=== PATIENT | female | born 1990 | race Caucasian/White ===

== ENCOUNTER 2018-11-29 16:44 | Outpatient (REF) | payer MEDICAID, SELFPAY ==
[2018-12-01 12:32] LABS: Chlamydia Result Negative; GC Result Negative; Specimen Description CERVIX
== END 2018-11-29 17:04 ==
LOC: LBN 16:44
PROVIDERS: PCP Family Medicine; Visit Provider Nurse Practitioner Women's Health
DX: Z11.3 Encounter for screening for infections with a predominantly sexual mode of transmission (principal)
CPT/HCPCS: 87491; 87591

== ENCOUNTER 2020-05-13 10:36 | Outpatient (CLI) | payer MEDICAID, SELFPAY ==
[2020-05-15 23:07] LABS: Patient Race White; SARS-CoV-2 RNA Undetected (Undetected); SARS-CoV-2 Specimen Source Nasal
== END 2020-05-13 10:56 ==
PROVIDERS: PCP Family Medicine; Visit Provider Family Medicine
DX: Z11.59 Encounter for screening for other viral diseases (principal); Z20.828 Contact with and (suspected) exposure to other viral communicable diseases
CPT/HCPCS: U0003

== ENCOUNTER 2020-08-05 11:22 | Outpatient (REF) | payer MEDICAID, SELFPAY ==
--- NOTE | 2020-08-05 10:45 | PAPFT_PTH ---
PATIENT: Margarette Miller LOC: [facility] U#:[id number] AGE/SX: 29/F ROOM: RE08/05/[address]: LESLEY Garcia : 1990 BED: DIS: 08/05/2020 SPEC #: [id number] RECD: 08/05/20 13:07 STATUS: KARINE REQ #: [id number] ROGELIO: 08/05/20 10:[address]: Laure Romeo [facility] Cytology RECD BY: Jojo Stover ENTERED: 08/05/20 13:07 SP TYPE: PAPFT OTHR DR: Melchor Cooper MD Tissues: 1 - CX/ENDOCX FOR PAP SMEARS Procedures: PAP THIN PREP/[facility]VM Screening Comments: [id number]
[2020-08-08 07:37] LABS: Chlamydia Result Negative (Negative); GC Result Negative (Negative)
== END 2020-08-05 11:23 | disposition home or self-care (01) ==
LOC: LBN 11:22
PROVIDERS: PCP Family Medicine; Visit Provider Nurse Practitioner Family
DX: Z11.3 Encounter for screening for infections with a predominantly sexual mode of transmission (principal); Z12.4 Encounter for screening for malignant neoplasm of cervix
CPT/HCPCS: 87491; 87591; 88142

== ENCOUNTER 2020-08-18 01:29 | Outpatient (CLI) | payer MEDICAID, SELFPAY ==
--- NOTE | 2020-08-18 06:45 | DI.US_ITS ---
EXAM: US PELVIS TRANSVAGINAL CLINICAL HISTORY: pelvic pain,R10.2 TECHNIQUE: Transabdominal and transvaginal imaging was performed using standard protocol. COMPARISON: US PELVIS TRANSVAG from 02/04/2015 FINDINGS: KIDNEYS: Kidneys are symmetric in size. No evidence of renal calculi. No evidence of hydronephrosis. No renal mass or cyst identified. UTERUS: Anteverted. 9.3 x 4.6 x 5.9 cm. Endometrium: 4 millimeters. IUD which appears appropriately positioned. Myometrium: Unremarkable. Cervix: Unremarkable. OVARIES: Right: Cyst or mass: None. Left: Cyst or mass: None. DOPPLER: Color: Symmetric and uniform flow to both ovaries. No hyperemia. Small follicles bilaterally. No cy st or mass. Duplex: Normal ovarian arterial waveforms visualized. CUL-DE-SAC: Free fluid: Small amount. Quantity appears physiologic. IMPRESSION: 1. Normal-appearing uterus with endometrial stripe within normal limits. IUD is seen within the endo metrial canal. 2. Unremarkable bilateral ovaries. Small amount free fluid, physiologic. DATA REPOSITORY:
== END 2020-08-18 01:49 ==
PROVIDERS: PCP Family Medicine; Visit Provider Nurse Practitioner Family
DX: R10.2 Pelvic and perineal pain (principal); Z97.5 Presence of (intrauterine) contraceptive device
CPT/HCPCS: 76830; 76856

== ENCOUNTER 2020-12-18 13:40 | Outpatient (REF) | payer MEDICAID, SELFPAY ==
[2020-12-19 15:35] LABS: Chlamydia Result Negative (Negative); GC Result Negative (Negative)
== END 2020-12-18 13:41 | disposition home or self-care (01) ==
LOC: LBN 13:40
PROVIDERS: PCP Family Medicine; Visit Provider Nurse Practitioner Family
DX: Z11.3 Encounter for screening for infections with a predominantly sexual mode of transmission (principal)
CPT/HCPCS: 87491; 87591

== ENCOUNTER 2021-06-30 20:36 | Outpatient (REF) | payer MEDICAID, SELFPAY ==
[2021-07-02 16:38] LABS: Chlamydia Result Negative (Negative); GC Result Negative (Negative)
== END 2021-06-30 20:37 | disposition home or self-care (01) ==
LOC: LBN 20:36
PROVIDERS: PCP Family Medicine; Visit Provider Nurse Practitioner Women's Health
DX: Z11.3 Encounter for screening for infections with a predominantly sexual mode of transmission (principal)
CPT/HCPCS: 87491; 87591

== ENCOUNTER 2021-08-24 14:55 | Outpatient (REF) | payer MEDICAID, SELFPAY ==
[2021-08-25 14:11] LABS: Chlamydia Result Negative (Negative); GC Result Negative (Negative)
== END 2021-08-24 14:56 | disposition home or self-care (01) ==
LOC: LBN 14:55
PROVIDERS: PCP Family Medicine; Visit Provider Nurse Practitioner Family
DX: Z11.3 Encounter for screening for infections with a predominantly sexual mode of transmission (principal)
CPT/HCPCS: 87491; 87591

== ENCOUNTER 2022-01-10 18:24 | Emergency (ER) | payer MEDICAID, SELFPAY ==
[2022-01-10 18:29] VITALS: BP 123/79; PULSE 63; RESP 18; TEMP 36.9; O2SAT 100
--- NOTE | 2022-01-10 18:57 | DI.RAD_ITS ---
Exam(s) XR FOOT LT COMPLETE EXAM: XR FOOT LT COMPLETE CLINICAL HISTORY: pain over 3-4th MTs, inversion injury TECHNIQUE: COMPARISON: No exams were available for comparison FINDINGS: Four views were obtained. There is no evidence of acute fracture or dislocation. IMPRESSION: RADIATION DOSE DELIVERED: Total DLP
--- NOTE | 2022-01-10 19:34 | ED.GENADUL_ITS ---
Discharge Plan Disposition Patient Disposition: HOME Condition: Stable Discharge Details Clinical Impression: Sprain of foot, left Primary Care Provider: Unknown,Unknown ED Provider: Sukumar Mae Home Meds and New Rx's Prescriptions: Continued acetaminophen [Tylenol] 325 MG tablet 650 mg PO Q4H PRN PRN0RF ibuprofen 600 MG tablet 600 mg PO Q6H PRN PRN0RF albuterol sulfate [ProAir HFA] 8.5 GM HFA aerosol inhaler 8.5 gm Inhalation Q4H PRNQty: 1 0RF Rx Instructions: 2 puffs up to every 4 hrs prn wheeze No Action up4 Probiotics Women's 5 billion cell- 250 mg capsule 1 cap PO DAILY Qty: 90 4RF Discharge Instructions Instructions: Foot Sprain (ED) Additional Instructions: Please use ankle boot and crutches over the next 1 week. Please take ibuprofen over the counter. Take 600mg by mouth every 6 hours as needed for pain. If pain persist, please follow-up with orthopedics. Return to the emergency department for any worsening or new concerning symptoms. Referrals: [facility] [Provider Group] Medical Decision Making 1939 -- 31-year-old female here with inversion injury to her right foot, tender over third and fourth metatarsals in her midfoot. Ankle is nontender with no swelling. Concern for extensor ligament tear versus Lisfranc joint injury. Plan to obtain plain film x-rays. We will also obtain weightbearing view. -- X-ray was interpreted by radiology: No acute bony pathology. Plan to place patient in short walking boot and provide crutches. She will be instructed to follow-up with orthopedics should pain persist despite immobilization. HPI General Mode of arrival: ambulatory . Date/Time Provider Initiated Documentation: 01/10/22 18:57 . Limitations to Documentation: no limitations . Information obtained by: patient . HPI Narrative: 31-year-old female here with left foot pain. Patient notes she inverted her foot while she was carrying a bed. Pain is moderate to severe and worse with movement of her foot. No associated numbness or tingling. This occurred just prior to arrival. She did take ibuprofen and Tylenol. Related Data Home Medications Medication Instructions Recorded Confirmed acetaminophen 325 mg tablet 650 mg PO Q4H PRN PRN 11/22/15 01/10/22 (Tylenol) ibuprofen 600 mg tablet 600 mg PO Q6H PRN PRN 11/22/15 01/10/22 albuterol sulfate 90 mcg/actuation 8.5 gm inhalation Q4H PRN ##1 09/11/17 01/10/22 aerosol inhaler (ProAir HFA) L.acid,gasseri,plant,rham-B.animalis-cran 1 cap PO DAILY #90 caps 06/08/21 12/09/21 5 billion cell-250mg capsule (up4 Probiotics Women's) Previous Rx's Medication Instructions Recorded acetaminophen 325 mg tablet 650 mg PO Q4H PRN PRN 11/22/15 (Tylenol) ibuprofen 600 mg tablet 600 mg PO Q6H PRN PRN 11/22/15 albuterol sulfate 90 mcg/actuation 8.5 gm inhalation Q4H PRN ##1 09/11/17 aerosol inhaler (ProAir HFA) L.acid,gasseri,plant,rham-B.animalis-cran 1 cap PO DAILY #90 caps 06/08/21 5 billion cell-250mg capsule (up4 Probiotics Women's) Allergies Allergy/AdvReac Type Severity Reaction Status Date / Time sulfamethoxazole AdvReac Intermediate Nausea Verified 01/10/22 18:32 [From Bactrim] trimethoprim [From Bactrim] AdvReac Intermediate Nausea Verified 01/10/22 18:32 General Stated Complaint: Orthopedic JANIS: 4 Review of Systems Musculoskeletal Musculoskeletal: Reports as per HPI Neurologic Neurologic: Reports as per HPI PFSH All Active Problems (Updated 01/10/22 @ 20:18 by Sukumar Mae MD) Sprain of foot, left (Acute) Asthma (Chronic) Family History Mother Epilepsy Father No problems noted. Brother No problems noted. Brother No problems noted. Grandfather No problems noted. Grandfather No problems noted. Grandmother No problems noted. Grandmother Diabetes Son Asthma Daughter No problems noted. Social History Smoking/Tobacco Use Status: Never Smoking risk assessment performed?: Yes Alcohol Intake: current Alcohol Intake frequency: a few times a month Drug use: Daily Substance use type: marijuana Household members: children Do you feel safe in your relationship?: Yes Female Reproductive History Menstrual Age of Menarche: 13 History History 2 Para 2 Hx # Term Pregnancies Multiple births Hx # Pregnancies Ectopic pregnancies AB induced Hx Number of Living Children 2 AB spontaneous Past Pregnancies Del. Date GA/Weeks # Preg Succ Route Wgt Sex Labor Lgth Anesth esia Location Prov Complic 06/15/11 40 No vaginal 3827.186 g Male [facility] 11/21/15 40 No vaginal 3798.836 g Female [facility] Exam Extrem Left lower extremity: lower leg Details: normal to inspection, ankle Details: normal to inspection and foot Details: tenderness Location: of the dorsal foot Location: medially (over 4th MT) and over the Lisfranc joint, edema Location: of the dorsal foot (mild) Location: medially, vascular exam Details: posterior tibial pulse present and motor-sensory exam Details: light-touch normal; no unusual warmth Course Vital Signs Vital signs: Vital Signs Temperature 36.9 C 01/10/22 18:29 Pulse 63 01/10/22 18:29 Respiratory Rate 18 01/10/22 18:29 Blood Pressure 123/79 01/10/22 18:29 Pulse Oximetry 100 01/10/22 18:29 Temperature 36.9 C 01/10/22 18:29 Temperature Source Temporal Artery Scan 01/10/22 18:29 Pulse 63 01/10/22 18:29 Respiratory Rate 18 01/10/22 18:29 Respiratory Effort Non-Labored 01/10/22 18:36 Blood Pressure 123/79 01/10/22 18:29 Blood Pressure Position Sitting 01/10/22 18:29 Pulse Oximetry 100 01/10/22 18:29 Oxygen Delivery Method Room Air 01/10/22 18:29 Oxygen Flow Rate 0 01/10/22 18:29 Lab/Test Results Lab/Test Results: POC- Test(urine) Negative PAWSS Have you Been Recently Intoxicated or Drunk Within the Last 30 days?: No Have you Ever Experienced Previous Episodes of Alcohol Withdrawal?: No Have you ever Experienced Withdrawal Seizures?: No Have you ever Experienced Delirium Tremens(DT)s?: No Have you ever undergone Alcohol Rehabilitation Treatment (i.e, inpt ot outpatient treatment programs)?: No Have you ever Experienced Blackouts?: No Have you ever Combined Alcohol with other Downers within the last 90 days?: No Have you ever Combined Alcohol with any other Substance of Abuse during the last 90 days?: No Positive Blood Alcohol level on Presentation? [PCS.BAL]: No Evidence of Increased Autonomic Activity (i.e. HR>120, tremor, sweating, agitation, nausea)?: No Result: 0
--- NOTE | 2022-01-10 19:51 | DI.VRAD_ITS ---
PROCEDURE INFORMATION: Exam: XR Left Foot Exam date and time: 01/10/2022 19:37 Age: 31 years old Clinical indication: Foot; Left; Patient HX: Pain over 3-4 mts, inversion injury; Incl weight-bearing ap per provider TECHNIQUE: Imaging protocol: Radiologic exam of the Left foot. Views: 3 or more views. COMPARISON: No relevant prior studies available. FINDINGS: Bones/joints: The No acute fracture or subluxation. Soft tissues: Normal. IMPRESSION: No acute bony pathology. Dictated and Authenticated by: Mayelin Domínguez MD. Ordering:CLARENCE Patino MD
== END 2022-01-10 20:35 | disposition home or self-care (01) ==
PROVIDERS: Emergency Provider Student in an Organized Health Care Education/Training Program
DX: S93.692A Other sprain of left foot, initial encounter (principal); X50.1XXA Overexertion from prolonged static or awkward postures, initial encounter
CPT/HCPCS: 29515; 81025; 99283; 73630

== ENCOUNTER 2022-02-12 01:43 | Outpatient (CLI) | payer MEDICAID, SELFPAY ==
--- OUTSIDE RECORDS SUMMARY | 2022-02-12 01:45 | XMS_ITS | Encounter Summary ---
:1990 Author Organization [facility] Address [address] [place] [address] Care Team Providers Name Role Phone Unknown, Provider Primary Care Provider Encounter Details Date Type Department Care Team Description 12/18/2020 Lab Requisition [facility] Outr Resulting Lab, Pathology & Laboratory Provider [facility] [address] [place] [address] Social History Tobacco Use Types Packs/Day Years Used Date Never Assessed Sex Assigned at Date Recorded Not on file documented as of this encounter Plan of Treatment Not on filedocumented as of this encounter Procedures Procedure Name Priority Date/Time Associated Comments Diagnosis CHLAMYDIA/N. Routine 12/18/2020 12:00 Results for this GONORRHOEAE AMPLIFIED EDT proced ure are in RNA the results section. documented in this encounter Results CHLAMYDIA/N. GONORRHOEAE AMPLIFIED RNA (12/18/2020 12:00 EDT) Pathologist Sig nature Gonococcus Result Negative Negative [facility] Chlamydia Result Negative Negative [facility] Specimen Swab - Entire endocervix (body structure ) Performing Organization Address City/State/ZIP Code Phon e Number [facility] [address] [place] [address] SERVICES documented in this encounter Visit Diagnoses Not on filedocumented in this encounter Care Teams Facilities Technician Relationship Specialty Start Date End Date Unknown, Provider, PCP - General 01/14/14 documented as of this encounter
--- OUTSIDE RECORDS SUMMARY | 2022-02-12 01:45 | XMS_ITS | Encounter Summary ---
:1990 Author Organization [facility] Address [address] [place] [address] Care Team Providers Name Role Phone Unknown, Provider Primary Care Provider Encounter Details Date Type Department Care Team Description 08/24/2021 Lab Requisition [facility] Outr Resulting Lab, Pathology & Laboratory Provider [facility] [address] [place] [address] Social History Tobacco Use Types Packs/Day Years Used Date Never Assessed Sex Assigned at Date Recorded Not on file documented as of this encounter Plan of Treatment Not on filedocumented as of this encounter Procedures Procedure Name Priority Date/Time Associated Comments Diagnosis CHLAMYDIA/N. Routine 08/24/2021 13:00 Results for this GONORRHOEAE AMPLIFIED EDT proced ure are in RNA the results section. documented in this encounter Results CHLAMYDIA/N. GONORRHOEAE AMPLIFIED RNA (08/24/2021 13:00 EDT) Pathologist Sig nature Gonococcus Result Negative Negative [facility] Chlamydia Result Negative Negative [facility] Specimen Swab - Entire endocervix (body structure ) Performing Organization Address City/State/ZIP Code Phon e Number [facility] [address] [place] [address] SERVICES documented in this encounter Visit Diagnoses Not on filedocumented in this encounter Care Teams Computer Systems Information Director Relationship Specialty Start Date End Date Unknown, Provider, PCP - General 01/14/14 documented as of this encounter
--- OUTSIDE RECORDS SUMMARY | 2022-02-12 01:45 | XMS_ITS | Encounter Summary ---
:[address] [facility] Address [address] [place] [address] Care Team Providers Name Role Phone Unknown, Provider Primary Care Provider Encounter Details Date Type Department Care Team Description 08/05/2020 Lab Requisition [facility] Outr Resulting Lab, Pathology & Laboratory Provider [facility] [address] [place] [address] Social History Tobacco Use Types Packs/Day Years Used Date Never Assessed Sex Assigned at Date Recorded Not on file documented as of this encounter Plan of Treatment Not on filedocumented as of this encounter Procedures Procedure Name Priority Date/Time Associated Comments Diagnosis CHLAMYDIA/N. Routine 08/05/2020 10:45 Results for this GONORRHOEAE AMPLIFIED EST proced ure are in RNA the results section. documented in this encounter Results CHLAMYDIA/N. GONORRHOEAE AMPLIFIED RNA (08/05/2020 10:45 EST) Pathologist Sig nature Gonococcus Result Negative Negative [facility] Chlamydia Result Negative Negative [facility] Specimen Swab - Entire endocervix (body structure ) Performing Organization Address City/State/ZIP Code Phon e Number [facility] [address] [place] [address] SERVICES documented in this encounter Visit Diagnoses Not on filedocumented in this encounter Care Teams Customer Experience Retail Clerk Relationship Specialty Start Date End Date Unknown, Provider, PCP - General 01/14/14 documented as of this encounter
--- OUTSIDE RECORDS SUMMARY | 2022-02-12 01:45 | XMS_ITS | Encounter Summary ---
:1990 Author Organization [facility] Address [address] [place] [address] Care Team Providers Name Role Phone Unknown, Provider Primary Care Provider Encounter Details Date Type Department Care Team Description 07/01/2021 Lab Requisition [facility] Outr Resulting Lab, Pathology & Laboratory Provider [facility] [address] [place] [address] Social History Tobacco Use Types Packs/Day Years Used Date Never Assessed Sex Assigned at Date Recorded Not on file documented as of this encounter Plan of Treatment Not on filedocumented as of this encounter Procedures Procedure Name Priority Date/Time Associated Comments Diagnosis CHLAMYDIA/N. Routine 06/30/2021 14:00 Results for this GONORRHOEAE AMPLIFIED EST proced ure are in RNA the results section. documented in this encounter Results CHLAMYDIA/N. GONORRHOEAE AMPLIFIED RNA (06/30/2021 14:00 EST) Pathologist Sig nature Gonococcus Result Negative Negative [facility] Chlamydia Result Negative Negative [facility] Specimen Swab - Entire wall of cervix (body struc ture) Performing Organization Address City/State/ZIP Code Phon e Number [facility] [address] [place] [address] SERVICES documented in this encounter Visit Diagnoses Not on filedocumented in this encounter Care Teams Ceo & Board Director Relationship Specialty Start Date End Date Unknown, Provider, PCP - General 01/14/14 documented as of this encounter
--- OUTSIDE RECORDS SUMMARY | 2022-02-12 01:46 | XMS_ITS | Encounter Summary ---
:1990 Author Organization [facility] Address [address] [place] [address] Care Team Providers Name Role Phone Unknown, Provider Primary Care Provider Encounter Details Date Type Department Care Team Description 01/11/2014 Results Only [facility] Vasquez Romeo, [facility] Laboratory Services - [address] [facility] [address] [address] [place] [address] [phone] Social History Tobacco Use Types Packs/Day Years Used Date Never Assessed Sex Assigned at Date Recorded Not on file documented as of this encounter Plan of Treatment Not on filedocumented as of this encounter Procedures Procedure Name Priority Date/Time Associated Diagnosis Comme nts PAP TEST- RESULT Routine 01/11/2014 0:00 EDT Resu lts for this ONLY procedure are i n the results section. documented in this encounter Results PAP TEST- RESULT ONLY (01/11/2014 0:00 EDT) Pathology Report: CYTOPATHOLOGY REPORT [facility] Reports generated via electronic interface contain mingo ginal data; however they are lacking the format of the original re port. Caution should be taken when reading/interpreting unfo rmatted reports. Name: ? GUERO MILLER ? Accession #: ? [id number] : ? 1990 (Age: 23) ??F ?Collect Date: ? 0806/2013 Location: ? [facility] ? Receive Date : ? 01/14/2014 Provider: ?HAYDER ROMEO BALANCE WEIGHER Copy to: ?PARAS BILLINGSLEY MD ? Specimen/Source: ? Pap Test, Cervix/Endocervix, ThinPrep Imaging System with manual evaluation Last Menstrual Period: ? 12/11/13 Hormonal/Contraceptive Status: ? Intrauterine device: Mirena Other: ? Additional clinical information: 1st Pap ? SPECIMEN ADEQUACY ? Satisfactory for Evaluation - transformation zone component present GENERAL CATEGORIZATION ? Negative for Intraepithelial Lesion or Malignan cy ? Document reviewed and electronically signed by: ? MARGARET Bean(ASCP) ? Report Date: ??01/16/2014 11:17 End of Report Specimen Performing Organization Address City/State/ZIP Code Phon e Number [facility] [address] [place] [address] SERVICES [facility] [address] [place] [address] documented in this encounter Visit Diagnoses Not on filedocumented in this encounter Care Teams Review Specialist Relationship Specialty Start Date End Date Unknown, Provider, PCP - General 01/14/14 documented as of this encounter
--- OUTSIDE RECORDS SUMMARY | 2022-02-12 01:46 | XMS_ITS | Encounter Summary ---
:1990 Author Organization [facility] Address [address] [place] [address] Care Team Providers Name Role Phone Unknown, Provider Primary Care Provider Encounter Details Date Type Department Care Team Description 06/17/2016 Results Only [facility]- Laure Sanford, [facility] [phone] [place] [address] [place] [address] (Wo rk) Social History Tobacco Use Types Packs/Day Years Used Date Never Assessed Sex Assigned at Date Recorded Not on file documented as of this encounter Plan of Treatment Not on filedocumented as of this encounter Procedures Procedure Name Priority Date/Time Associated Diagnosis Comme nts PAP TEST- RESULT Routine 06/17/2016 0:00 EST Resu lts for this ONLY procedure are i n the results section. documented in this encounter Results PAP TEST- RESULT ONLY (06/17/2016 0:00 EST) Pathology Report: CYTOPATHOLOGY REPORT [facility] Reports generated via electronic interface contain mingo ginal data; SERVICES however they are lacking the format of the original re port. Caution should be taken when reading/interpreting unfo rmatted reports. Name: ? GUERO MILLER ? Accession #: ? [id number] : ? 1990 (Age: 4 3) ??F ?Collect Date: ? 2016 Location: ? [facility] ? Receive Date : ? 06/18/2016 Provider: ?LAURE POSADAS BINGO CLERK Copy to: ?NILES COLÓN MD ? Specimen/Source: ? Pap Test, Cervix, ThinPrep Imaging System with manual evaluation Last Menstrual Period: ? 05/19/2016 ? SPECIMEN ADEQUACY ? Satisfactory for Evaluation - transformation zone component present GENERAL CATEGORIZATION ? Negative for Intraepithelial Lesion or Malignan cy ? Document reviewed and electronically signed by: ? MARGARET Duarte(ASCP) ? Report Date: ??06/22/2016 12:29 End of Report Specimen Performing Organization Address City/State/ZIP Code Phon e Number [facility] [address] [place] [address] SERVICES documented in this encounter Visit Diagnoses Not on filedocumented in this encounter Care Teams Senior Scientist Relationship Specialty Start Date End Date Unknown, Provider, PCP - General 01/14/14 documented as of this encounter
[2022-02-12 12:26] LABS: Abs Immature Grans 0.01 10^3/uL (0.0-0.06); Absolute Basophil Count 0.04 10^3/uL (0.0-0.2); Absolute Eosinophil Count 0.15 10^3/uL (0.0-0.7); Absolute Lymphocyte Count 1.38 10^3/uL (1.2-3.4); Absolute Monocyte Count 0.27 10^3/uL (0.1-0.8); Absolute Neutrophil Count 3.02 10^3/uL (1.2-6.7); Basophils % 0.8; Eosinophils % 3.1; HCT 36.1 % (36.0-46.0); HGB 12.4 g/dL (11.2-15.7); Immature Grans % 0.2; Lymphocytes % 28.3; MCHC 34.3 % (32.0-36.0); MCV 93 fL (80-95); MPV 10.9 fL (8.0-11.0); Monocytes % 5.5; Neutrophils % 62.1; Platelet Count 210 10^3/uL (130-400); RBC 3.87 10^6/uL (3.93-5.22); RDW 12.4 % (11.7-14.6); RDW-SD 42.6 fL; WBC 4.87 10^3/uL (4.4-10.8)
[2022-02-12 12:52] LABS: BUN 14 mg/dL (7-18); CREATININE 0.8 mg/dL (0.55-1.02); Calcium 9.2 mg/dL (8.5-10.1); Calculated LDL 80 mg/dL (<100); Chloride 104 mmol/L (98-107); Cholesterol 168 mg/dL (<200); Estimated GFR 102.22 (mL/min/1.73m2); Glucose 73 mg/dL (74-106); HDL Cholesterol 78 mg/dL (40-60); Sodium 142 mmol/L (136-145); Triglyceride 54 mg/dL (<150)
== END 2022-02-12 01:44 | disposition home or self-care (01) ==
LOC: LOS 01:43
PROVIDERS: PCP Nurse Practitioner Family; Visit Provider Nurse Practitioner Family
DX: R42 Dizziness and giddiness (principal); Z13.220 Encounter for screening for lipoid disorders; Z13.29 Encounter for screening for other suspected endocrine disorder; Z00.00 Encounter for general adult medical examination without abnormal findings
CPT/HCPCS: 36415; 80048; 80061; 84443; 85025

== ENCOUNTER 2022-07-30 09:46 | Outpatient (CLI) | payer MEDICAID, SELFPAY ==
[2022-07-30 09:35] LABS: HCG Quant, Pregnancy 7 mIU/mL (1-3)
== END 2022-07-30 09:47 | disposition home or self-care (01) ==
LOC: LBO 10:09
PROVIDERS: PCP Nurse Practitioner Family; Visit Provider Advanced Practice Midwife
DX: O20.9 Hemorrhage in early pregnancy, unspecified (principal)
CPT/HCPCS: 36415; 86850; 86900; 86901; 84702

== ENCOUNTER 2022-08-02 02:55 | Outpatient (CLI) | payer MEDICAID, SELFPAY ==
[2022-08-02 11:24] LABS: HCG Quant, Pregnancy 2 mIU/mL (1-3)
== END 2022-08-02 02:56 | disposition home or self-care (01) ==
LOC: LBO 02:55
PROVIDERS: PCP Nurse Practitioner Family; Visit Provider Advanced Practice Midwife
DX: O03.9 Complete or unspecified spontaneous abortion without complication (principal)
CPT/HCPCS: 36415; 84702

== ENCOUNTER 2022-08-25 13:24 | Outpatient (CLI) | payer MEDICAID, SELFPAY ==
[2022-08-25 13:39] LABS: HCG Quant, Pregnancy 68 mIU/mL (1-3)
== END 2022-08-25 13:25 | disposition home or self-care (01) ==
LOC: LBO 13:24
PROVIDERS: Advanced Practice Midwife; PCP Nurse Practitioner Family; Visit Provider Advanced Practice Midwife
DX: O03.9 Complete or unspecified spontaneous abortion without complication (principal); Z87.59 Personal history of other complications of pregnancy, childbirth and the puerperium
CPT/HCPCS: 36415; 84702

== ENCOUNTER 2022-08-27 02:15 | Outpatient (CLI) | payer MEDICAID, SELFPAY ==
[2022-08-27 16:08] LABS: HCG Quant, Pregnancy 237 mIU/mL (1-3)
== END 2022-08-27 02:16 | disposition home or self-care (01) ==
LOC: LBO 02:15
PROVIDERS: PCP Nurse Practitioner Family; Visit Provider Advanced Practice Midwife
DX: O03.9 Complete or unspecified spontaneous abortion without complication (principal); Z87.59 Personal history of other complications of pregnancy, childbirth and the puerperium
CPT/HCPCS: 36415; 84702

== ENCOUNTER 2022-10-18 03:00 | Outpatient (CLI) | payer MEDICAID, SELFPAY ==
[2022-10-18 12:26] LABS: Panorama Kit Sent via Fed Ex
[2022-10-18 12:34] LABS: Abs Immature Grans 0.01 10^3/uL (0.0-0.06); Absolute Basophil Count 0.03 10^3/uL (0.0-0.2); Absolute Eosinophil Count 0.07 10^3/uL (0.0-0.7); Absolute Lymphocyte Count 1.38 10^3/uL (1.2-3.4); Absolute Monocyte Count 0.35 10^3/uL (0.1-0.8); Absolute Neutrophil Count 5.06 10^3/uL (1.2-6.7); Basophils % 0.4; HCT 33.2 % (36.0-46.0); HGB 11.6 g/dL (11.2-15.7); Immature Grans % 0.1; MCH 31.8 pg (27.0-33.0); MCHC 34.9 % (32.0-36.0); MCV 91 fL (80-95); MPV 9.6 fL (8.0-11.0); Monocytes % 5.1; Neutrophils % 73.4; Platelet Count 200 10^3/uL (130-400); RBC 3.65 10^6/uL (3.93-5.22); RDW 12.5 % (11.7-14.6); RDW-SD 41.6 fL
[2022-10-19 09:44] LABS: Hepatitis B Surface Ag Negative (Negative)
[2022-10-19 10:07] LABS: Hepatitis C Ab w Rflx HCV PCR Negative (Negative)
[2022-10-19 10:23] LABS: HIV-1/2 Ag & Ab Screen Negative (Negative)
[2022-10-19 10:35] LABS: Varicella IgG Antibody Positive (See Note)
[2022-10-19 10:43] LABS: Rubella IgG Ab (UVM) Positive (See Note)
[2022-10-20 22:19] LABS: Syphilis IgG w/Reflex Nonreactive (Nonreactive)
== END 2022-10-18 03:01 | disposition home or self-care (01) ==
LOC: LBO 03:00
PROVIDERS: PCP Nurse Practitioner Family; Visit Provider Advanced Practice Midwife
DX: Z34.91 Encounter for supervision of normal pregnancy, unspecified, first trimester (principal); Z3A.11 11 weeks gestation of pregnancy
CPT/HCPCS: 36415; 86787; 86803; 86850; 86900; 86901; 87340; 87389; 85025; 86762; 86780

== ENCOUNTER 2022-10-18 11:02 | Outpatient (REF) | payer MEDICAID, SELFPAY ==
[2022-10-18 12:31] LABS: *AMPHETAMINES SCREEN URINE Negative (Negative); *BARBITURATES SCREEN URINE Negative (Negative); *BENZODIAZEPINES SCREEN URINE Negative (Negative); Cannabinoids THC Negative (Negative); Cocaine Screen,Urine Negative (Negative); METHADONE URINE SCREEN Negative (Negative); OPIATES URINE SCREEN Negative (Negative)
[2022-10-18 12:39] LABS: Tricyclic Antidepressants Negative (Negative)
[2022-10-19 12:24] LABS: Chlamydia Result Negative (Negative); GC Result Negative (Negative)
[2022-10-26 11:14] LABS: Buprenorphine Negative ng/mL (Cutoff: 5.0); Norbuprenorphine Negative ng/mL (Cutoff: 2.5)
== END 2022-10-18 11:03 | disposition home or self-care (01) ==
LOC: LBN 11:02
PROVIDERS: PCP Nurse Practitioner Family; Visit Provider Advanced Practice Midwife
DX: Z34.91 Encounter for supervision of normal pregnancy, unspecified, first trimester (principal); Z3A.11 11 weeks gestation of pregnancy; Z11.3 Encounter for screening for infections with a predominantly sexual mode of transmission
CPT/HCPCS: 80307; 80348; 87491; 87591; 87086; 87480; 87510; 87660

== ENCOUNTER 2022-11-29 11:45 | Outpatient (CLI) | payer MEDICAID, SELFPAY ==
--- NOTE | 2022-11-29 09:45 | DI.US_ITS ---
Exam(s) US OB CERVICAL LENGTH EXAM: US OB CERVICAL LENGTH CLINICAL HISTORY: increasing contractions at 17weeks, O47.00, WET READING. COMPARISON: US POCUS EXAM from 10/18/2022 TECHNIQUE: Transabdominal and transvaginal obstetrical ultrasound performed. FINDINGS: Sonographic images demonstrate a single intrauterine gestation in variable position. heart rate motion is Dopplered at: 147 bpm. Placenta: Anterior. No evidence of previa. Cervical length 6.4 cm. Amniotic fluid : Amount of fluid is visual within normal limits. IMPRESSION: Single live intrauterine gestation . Normal cervical length. DATA REPOSITORY:
== END 2022-11-29 12:05 ==
LOC: DI 11:46
PROVIDERS: PCP Nurse Practitioner Family; Visit Provider Advanced Practice Midwife
DX: O47.02 False labor before 37 completed weeks of gestation, second trimester (principal)
CPT/HCPCS: 76815

== ENCOUNTER 2022-11-29 15:01 | Outpatient (REF) | payer MEDICAID, SELFPAY | END 2022-11-29 15:02 | disposition home or self-care (01) | LOC: LBN 15:01 | PROVIDERS: PCP Nurse Practitioner Family; Visit Provider Advanced Practice Midwife | DX: Z34.91 Encounter for supervision of normal pregnancy, unspecified, first trimester (principal) | CPT/HCPCS: 87086 ==

== ENCOUNTER 2022-12-15 01:17 | Outpatient (CLI) | payer MEDICAID, SELFPAY ==
--- NOTE | 2022-12-15 06:45 | DI.US_ITS ---
Exam(s) US OB 2-3 TRIMESTER EXAM: US OB 2-3 TRIMESTER CLINICAL HISTORY: , Z34.90 survey. TECHNIQUE: Transabdominal obstetrical ultrasound performed. COMPARISON: US POCUS EXAM from 10/18/2022 US US OB CERVICAL LENGTH from 11/29/2022 FINDINGS: Number of fetuses: One. position: Variable Placental grade: 1 Placental location: Anterior no evidence of previa. BIOMETRIC DATA: BPD: 48mm = 20+ 3 weeks HC: 180mm = 20+ 3 weeks AC: 158mm = 20+ 6 weeks FL: 34mm = 20+ 3 weeks Cisterna Magna: 3.8 mm Cerebellum: 2.1 cm EFW: 370 grms 88% Composite Age: 20+ 4 weeks EDC by US: 30 April 2023 Heart Rate: 143BPM Amniotic fluid : Amount of fluid is within normal limits. ANATOMICAL SURVEY: Four-chambered heart: Unremarkable. LVOT: Unremarkable. RVOT: Unremarkable. Left-sided stomach: Unremarkable. urinary bladder: Unremarkable. Bilateral kidneys: Unremarkable. Three-vessel cord: Unremarkable. Cord insertion: Unremarkable. Posterior fossa:Unremarkable. ventricles: Unremarkable. nose: Unremarkable. lips: Unremarkable. palate: Unremarkable. spine: Unremarkable. Two arms and two legs: Unremarkable. IMPRESSION: 1. Single live intrauterine gestation with composite age 20+ 4 weeks.. 2. Normal anatomic survey. DATA REPOSITORY:
== END 2022-12-15 01:37 ==
LOC: DI 01:17
PROVIDERS: PCP Nurse Practitioner Family; Visit Provider Advanced Practice Midwife
DX: Z34.92 Encounter for supervision of normal pregnancy, unspecified, second trimester (principal)
CPT/HCPCS: 76805

== ENCOUNTER 2023-01-07 01:27 | Outpatient (CLI) | payer MEDICAID, SELFPAY ==
[2023-01-07 13:17] LABS: HGB 10.8 g/dL (11.2-15.7); MCH 32.4 pg (27.0-33.0); MCHC 34.8 % (32.0-36.0); MCV 93 fL (80-95); MPV 9.7 fL (8.0-11.0); Platelet Count 164 10^3/uL (130-400); RBC 3.33 10^6/uL (3.93-5.22); RDW 13.7 % (11.7-14.6); RDW-SD 46.5 fL; WBC 7.38 10^3/uL (4.4-10.8)
== END 2023-01-07 01:28 | disposition home or self-care (01) ==
PROVIDERS: PCP Nurse Practitioner Family; Visit Provider Advanced Practice Midwife
DX: Z34.92 Encounter for supervision of normal pregnancy, unspecified, second trimester (principal); Z3A.23 23 weeks gestation of pregnancy
CPT/HCPCS: 36415; 85027

== ENCOUNTER 2023-01-28 18:06 | Outpatient (CLI) | payer MEDICAID, SELFPAY ==
[2023-01-28 18:26] VITALS: BP 107/59; PULSE 64; TEMP 36.6
[2023-01-28 18:29] VITALS: BP 107/59; PULSE 64
[2023-01-28 18:46] LABS: HCT 31.2 % (36.0-46.0); HGB 10.8 g/dL (11.2-15.7); MCHC 34.6 % (32.0-36.0); MCV 92 fL (80-95); MPV 9.6 fL (8.0-11.0); Platelet Count 164 10^3/uL (130-400); RBC 3.38 10^6/uL (3.93-5.22); RDW 13.4 % (11.7-14.6); RDW-SD 45.3 fL; WBC 7.58 10^3/uL (4.4-10.8)
[2023-01-28 19:01] LABS: ALT 18 U/L (14-59); AST 15 U/L (15-37); Albumin 2.9 g/dL (3.4-5.0); Alkaline Phosphatase 44 U/L (46-116); Anion Gap 11.5 mmol/L (3-11); BUN 7 mg/dL (7-18); Bilirubin, Total 0.2 mg/dL (0.2-1.0); CO2 22.5 mmol/L (21.0-32.0); CREATININE 0.4 mg/dL (0.55-1.02); Calcium 9.1 mg/dL (8.5-10.1); Chloride 106 mmol/L (98-107); Estimated GFR 136.46 (mL/min/1.73m2); Glucose 83 mg/dL (74-106); Potassium 3.4 mmol/L (3.5-5.1); Sodium 140 mmol/L (136-145); Total Protein 6.4 g/dL (6.4-8.2)
--- NOTE | 2023-01-28 19:43 | W.OBNST ---
Date of service: 01/28/23 Time of Service: 19:44 NST Evaluation Reason for NST Reasons for Nonstress Test: OTHER, SEE COMMENT Reason for NST Other: Patient has vertigo Gestational Age Gestational Age in Weeks and Days: 26 Weeks and 1Days Test and Monitor Explained Test/Monitor Explained: Test Explained Vital Signs Blood Pressure: 107/59 Pulse: 64 Temperature: 97.9 F Urine Results Urine Protein: Negative Urine Ketones: Positive Urine Glucose: Negative Urine Blood: Negative NST Information Date on Monitor: 01/28/23 Time on Monitor: 18:01 Date off Monitor: 01/28/23 Time off Monitor: 19:44 Total Time on Monitor: 103 NST Interventions: PO Hydration Contraction Frequency: 0 NST Evaluation Patient States Movement: Present FHR Baseline: 140 Variability: Moderate 6-25 bpm Accelerations: 10x10 Decelerations: None NST Results: Reactive Note Ultrasound Done: N/A. NST Note Note: CMP & CBC nml UA neg except small ketones Pt states dizziness is gone after resting in bed and having juice Dramamine 25 mg - 50 mg PO q6 hrs Rx'ed Pt to have f/up with PCP in 2 wks (has appt) NST Reviewed and Verified by: Zee Stanton
[2023-01-28 19:46] VITALS: BP 107/59; PULSE 64; TEMP 36.6
== END 2023-01-28 19:50 ==
LOC: BCD 18:18 → OBS 18:20 → BCD 18:22 → OBS 18:24
PROVIDERS: PCP Nurse Practitioner Family; Visit Provider Advanced Practice Midwife
DX: O26.893 Other specified pregnancy related conditions, third trimester (principal); R42 Dizziness and giddiness; Z3A.26 26 weeks gestation of pregnancy
CPT/HCPCS: 80053; 85027; 59025; G0378

== ENCOUNTER 2023-02-09 02:02 | Outpatient (CLI) | payer MEDICAID, SELFPAY ==
[2023-02-09 12:40] LABS: HGB 10.5 g/dL (11.2-15.7); MCH 32.6 pg (27.0-33.0); MCV 93 fL (80-95); MPV 10.3 fL (8.0-11.0); Platelet Count 177 10^3/uL (130-400); RBC 3.22 10^6/uL (3.93-5.22); RDW 13.5 % (11.7-14.6); RDW-SD 45.6 fL; WBC 8.64 10^3/uL (4.4-10.8)
[2023-02-09 12:52] LABS: Glucose,1 Hr (Glucola) 98 mg/dL (80-140)
== END 2023-02-09 02:03 | disposition home or self-care (01) ==
LOC: LBO 02:03
PROVIDERS: Advanced Practice Midwife; PCP Nurse Practitioner Family; Visit Provider Advanced Practice Midwife
DX: Z34.93 Encounter for supervision of normal pregnancy, unspecified, third trimester (principal); Z3A.28 28 weeks gestation of pregnancy
CPT/HCPCS: 36415; 82950; 85027

== ENCOUNTER 2023-02-23 15:18 | Outpatient (CLI) | payer MEDICAID, SELFPAY ==
[2023-02-23 12:59] LABS: Iron 120 ug/dL (50-170)
[2023-02-23 13:05] LABS: Ferritin 11 ng/mL (8-252)
== END 2023-02-23 15:19 | disposition home or self-care (01) ==
LOC: LBO 15:19
PROVIDERS: PCP Nurse Practitioner Family; Visit Provider Advanced Practice Midwife
DX: D64.9 Anemia, unspecified (principal)
CPT/HCPCS: 36415; 82728; 83540

== ENCOUNTER 2023-04-05 18:26 | Outpatient (REF) | payer MEDICAID, SELFPAY ==
[2023-04-05 19:59] LABS: *AMPHETAMINES SCREEN URINE Negative (Negative); *BARBITURATES SCREEN URINE Negative (Negative); *BENZODIAZEPINES SCREEN URINE Negative (Negative); Cannabinoids THC Negative (Negative); Cocaine Screen,Urine Negative (Negative); METHADONE URINE SCREEN Negative (Negative); OPIATES URINE SCREEN Negative (Negative)
[2023-04-05 20:01] LABS: Tricyclic Antidepressants Negative (Negative)
[2023-04-12 12:19] LABS: Buprenorphine Negative ng/mL (Cutoff: 5.0); Norbuprenorphine Negative ng/mL (Cutoff: 2.5)
== END 2023-04-05 18:27 | disposition home or self-care (01) ==
LOC: LBN 18:26
PROVIDERS: PCP Nurse Practitioner Family; Visit Provider Advanced Practice Midwife
DX: Z34.93 Encounter for supervision of normal pregnancy, unspecified, third trimester (principal)
CPT/HCPCS: 80307; 80348; 87081

== ENCOUNTER 2023-05-02 08:46 | Inpatient (IN) | payer MEDICAID, SELFPAY ==
[2023-05-02] VITALS (31 sets, daily range): BP systolic 89–125; BP diastolic 50–77; PULSE 64–131; RESP 16–18; TEMP 36.3–36.9; O2SAT 98–100; BMI 28.2
[2023-05-02 08:34] LABS: ROM Plus Positive
--- NOTE | 2023-05-02 08:48 | HPE_ITS ---
Date of service: 05/02/23 Time of Service: 08:48 Assessment and Plan Assessment and plan (1) Premature rupture of membranes: Status: Acute Assessment and plan: 1. SSE was equivocal for ROM as there was clear fluid but no pooling, ROM + is positive. Will assume ROM and admit for induction of labor at 39w5d. SONAM 2. Discussed risks, benefits and alternatives to Misoprostol, patient agrees to this plan. 3. VS stable, afebrile. 4. IV access and IV fluid bolus due to some tachycardia at this time. 5. Plan reviewed with Dr. Rao who agrees to plan. 6. Type and screen and CBC obtained. 7. Cervix appeared long thick and closed on SSE will reassess when actively anabel or as indicated, will keep VE to minimal due to ROM. KH OB-HPI Labor/Delivery History of Present Illness Reason for Visit: Rule-out rupture Chief Complaint: Suspected Rupture of Membranes (wet underwear this morning, gushes started 7pm 05/11) , Associated Signs and Symptoms of Suspected ROM: small amount of fluid by cervix, ROM + positive. BERNICE Calculator Estimated Delivery Date Method Current WG Current Estimate 05/04/23 Conception 39w 5d Other Estimates 05/05/23 Ultrasound #1 39w 4d History of Present Expected Delivery Route/Plan - CNM FOB/fiance - Petey Anne (first baby together, 2 prev children healthy) BB yes to circ Unmedicated planned, wants to be active, access to shower/tub, delayed cord clamping is important GBS negative Specific Issues/Plan 1. Genetic testing - CF neg 2011. panorama 10/18-neg, declines AFP. 2. Vertigo: dramamine 25-50 mg PO q6 hrs, f/up with PCP, 2a. Consider consult with neuro: pt's mother had seizures 2b. Now taking dramamine PRN for car rides. 3. Anemia in 2nd trimester, resolved at 36 wks Informed Consent Informed Consent: Induction of Labor and Risk,Benefits,Alternatives Discussed Review of Systems All systems reviewed & are unremarkable except as noted in HPI and below Constitutional Constitutional: Reports other (denies fever or feeling ill) Genitourinary Comments: Having small gushes of clear fluid PFSH All Active Problems (Updated 05/02/23 @ 09:03 by Yolanda Garcia CNM) Premature rupture of membranes (Acute) BPPV (benign paroxysmal positional vertigo) (Acute) symptoms had resolved, but recurring at 26 wks uterine contractions (Acute) Marijuana smoker, episodic (Acute) (Chronic) No LMP since June 2022, likely conception 08/11/2022 after early SAB 08/05 Medical History History of miscarriage Spontaneous Asthma Surgical History No significant past surgical history Family History Mother Epilepsy Father Substance use disorder COPD (chronic obstructive pulmonary disease) Brother Bipolar disorder Brother No problems noted. Son Asthma Daughter No problems noted. Maternal Grandfather No problems noted. Maternal Grandmother Hypertension Paternal Grandfather No problems noted. Paternal Grandmother Kidney disease Aunt Asthma Uncle Asthma Social History Smoking/Tobacco Use Status: Never Smoking risk assessment performed?: Yes Alcohol Intake: current Alcohol Intake frequency: a few times a month Drug use: Daily Substance use type: marijuana Household members: children Do you feel safe in your relationship?: Yes Female Reproductive History Menstrual Age of Menarche: 13 History History 5 Para 2 Hx # Term Pregnancies 2 Multiple births 0 Hx # Pregnancies 0 Ectopic pregnancies 0 AB induced 1 Hx Number of Living Children 2 AB spontaneous 1 Past Pregnancies Del. Date GA/Weeks # Preg Succ Route Wgt Sex Labor Lgth Anesth esia Location Prov Compl 06/15/11 40 No vaginal 8 lb 7 oz Male 24 [facility] 11/21/15 40 No vaginal 8 lb 6 oz Female 11 [facility] - with CNM Delivery Date: 06/15/11 Last Updated by: Yolanda Olivera CNM epidural ineffective, numb on one side. Delivery Date: 11/21/15 Last Updated by: Yolanda Olivera CNM nitrous oxide used briefly. Meds Allergies and Home Medications Allergies Allergy/AdvReac Type Severity Reaction Status Date / Time sulfamethoxazole AdvReac Intermediate Nausea Verified 05/02/23 08:59 [From Bactrim] trimethoprim [From Bactrim] AdvReac Intermediate Nausea Verified 05/02/23 08:59 Home Medications Medication Instructions Recorded Confirmed Type acetaminophen 325 mg tablet 650 mg (2 x 325 mg) PO Q4H PRN PRN 11/22/15 05/02/23 Rx (Tylenol) albuterol sulfate 90 mcg/actuation 8.5 gm inhalation Q4H PRN ##1 09/11/17 05/02/23 Rx aerosol inhaler (ProAir HFA) L.acid,gasseri,plant,rham-B.animalis-cran 1 cap PO PRN 02/10/22 05/02/23 History 5 billion cell-250mg capsule (up4 Probiotics Women's) prenat.vits,mickey,rhl-riqs-agfzp 1 tab PO DAILY 09/23/22 05/02/23 History cholecalciferol (vitamin D3) 50 50 mcg PO DAILY 11/29/22 05/02/23 History mcg (2,000 unit) capsule ferrous sulfate 325 mg (65 mg 325 mg PO DAILY #90 tabs 01/07/23 05/02/23 Rx iron) tablet meclizine 25 mg tablet (Dramamine 25 mg PO QID #60 tabs 01/28/23 05/02/23 Rx (meclizine)) Exam Physical Exam Vital Signs Reviewed: Yes Narrative: VS stable, afebrile 36.7, BP 106/50 P 73 Constitutional Constitutional: no acute distress Detailed Labor and Delivery Exam Ceron Score: Cervical Points Exam 0 1 2 3 Dilation Closed 1-2cm 3-4 cm 5-6cm Effacement 0-30% 40-50% 60-70% 80% Consistency Firm Medium Soft Station -3 -2 -1,0 +1,+2 Position Posterior Mid Anterior Amniotic Membrane Status: Ruptured (05/01/23 2200) Rupture Method: Spontaneous Amniotic Fluid: Clear Contraction Frequency(min): irregular Contraction Duration(sec): irregular Contraction Intensity: Mild Comments: VE deferred, on SSE cervix appears closed and thick Fetus A Heart Rate Baseline: 160 Monitor Accelerations: Absent Monitor Decelerations: None Variability: Moderate (6-25 BPM) Date of Membrane Rupture: 05/01/23 Time of Membrane Rupture: 19:00 Assessment Note: Original NST was reactive with normal baseline, will give IV fluid bolus and reassess. Patient is afebrile HEENT Exam HEENT Exam: Normal Neck Exam Neck Exam: Normal (visual exam) Chest/Brest/Axilla Exam Chest Exam: Normal Breast Exam Breast Exam: Not Done Respiratory Exam Respiratory Exam: Normal Cardiovascular Exam Cardiovascular Exam: Normal Abdominal Exam Abdominal Exam: Normal (gravid uterus, size equals dates, non tender) Rectal Exam Rectal Exam: Not Done Exam Exam: Normal (posterior fornix appeared wet on SSE but no pooling ROM + is positive) Extremities Exam Extremities Exam: Normal Back/Spine/Pelvis Exam Back Exam: Normal Pelvis Adequate: Yes Skin Exam Skin Exam: Normal Neurological Exam Neurological Exam: Normal Psychiatric Exam Psychiatric Exam: Normal Results Results Group Beta Strep: Negative Blood Type: O+ Rubella Status: Immune Varicella Immunity: Immune Lab Results: Hep B and C neg, Syphilis neg, HIV neg, GC CT neg, cfDNA low risk male, 1 hour glucose 98 Risk Assessment Risk for Shoulder Dystocia Historical/Initial OB: NEGATIVE FOR: Pelvic Abnormality, Pre- BMI>30, Previous Shoulder Dystocia or Previous Macrosomia 40 Weeks: NEGATIVE FOR: EFW> 4500 gms, Maternal Weight Gain >40lb or Post Dates Delivery Plan @ 40 wks: NVD expected. Risk for Pre-Eclampsia Yes, if one or more: NEGATIVE FOR: Hx Pre-E/Gest HTN, Chronic HTN, Multiple Gestation, Pre-gestational DM, Renal Disease, Systemic Lupus or APA Syndrome Yes, if 2 or more: NEGATIVE FOR: Nulliparity, Age>= 35 yrs, >10yr btwn pregnancies, BMI>30, ethinicty, Mother/Sister w/ Pre-E or Previous IUGR Risk for Post- Hemorrhage Initial: NEGATIVE FOR: Multiple Gestation, Previous PPH, Known Clotting Deficiency, Grand Multiparity or Anticoagulation 40 Weeks: NEGATIVE FOR: Anemia, hgb<10, Low platelets (thrombocytopenia), Gestation HTN or Pre-E, Polyhydraminios or EFW>4500gms At Risk?: No Date/Initials: 05/02 KH Risks Reviewed Risks Reviewed Upon Admission: Yes
--- NOTE | 2023-05-02 09:13 | W.OBNST ---
Date of service: 05/02/23 Time of Service: 08:00 NST Evaluation Reason for NST Reasons for Nonstress Test: OTHER, SEE COMMENT Reason for NST Other: question rupture Gestational Age Gestational Age in Weeks and Days: 39 Weeks and 5Days Test and Monitor Explained Test/Monitor Explained: Test Explained, Monitor Explained and Patient Verbalized Understanding Vital Signs Blood Pressure: 106/50 Pulse: 73 Temperature: 98.1 F NST Information Date on Monitor: 05/02/23 Time on Monitor: 07:42 Date off Monitor: 05/02/23 Time off Monitor: 08:07 Total Time on Monitor: 25 NST Interventions: None Contraction Frequency: x2, 13 min apart NST Evaluation Patient States Movement: Present FHR Baseline: 125 Variability: Moderate 6-25 bpm Accelerations: 15x15 Decelerations: None NST Results: Reactive Note Ultrasound Done: N/A. NST Note Note: NST is reacitve. Will await ROM + results. Admit if indicated. NST Reviewed and Verified by: Yolanda Garcia
[2023-05-02 09:20] LABS: HCT 33.2 % (36.0-46.0); HGB 11.6 g/dL (11.2-15.7); MCH 32.5 pg (27.0-33.0); MCHC 34.9 % (32.0-36.0); MCV 93 fL (80-95); MPV 10.1 fL (8.0-11.0); Platelet Count 147 10^3/uL (130-400); RBC 3.57 10^6/uL (3.93-5.22); RDW 13.4 % (11.7-14.6); RDW-SD 45.6 fL; WBC 7.85 10^3/uL (4.4-10.8)
[2023-05-02] MEDS: miSOPROStol 25 MCG TAB 50 MCG PO (09:52)
[2023-05-02] MEDS: Lactated Ringers 500 ML IV (09:56)
[2023-05-02] MEDS: Normal Saline Flush 10 ML SYR IVP (09:58)
[2023-05-02 12:45] LABS: Source Nasal/Nares
[2023-05-02 13:49] LABS: COVID-19 PCR Negative (Negative)
--- NOTE | 2023-05-02 14:11 | W.PM.OBNL1 ---
Date of service: 05/02/23 Time of Service: 14:11 Informed Consent Informed Consent: Induction of Labor and Risk,Benefits,Alternatives Discussed Pelvic Exam Dilation: 2 Effacement (%): 60 station: -1 Position: SARA Cervix Position: posterior Consistency: soft BISHOPS Score(Cervical Ripeness Score): 7 Comments: continues to leak clear fluid vaginally Contractions Monitor Mode: External Contraction Frequency(min): 3-4 Contraction Duration(sec): 60-90 Intensity: Moderate Fetus A Monitor: External (US) Heart Rate Baseline: 140 Presentation: Cephalic Variability: Moderate (6-25 BPM) Categories: Category I Assessment and Plan Assessment and plan (1) Premature rupture of membranes: Status: Acute Assessment and plan: 1. doing well. 19 hours status post SROM, remains afebrile and reassuring status 2. Per previous consult with Dr. Rao, as long as patient is afebrile we do not need to use prophylactic antibiotics due to PROM 3. Continue present management and reassess in 4 hours or prn, patient encouraged to tell us if contractions seem less effective and at that time we will consider pitocin augmentation. KH Objective Abnormal lab results 05/02/23 Range/Units 09:07 RBC 3.57 L (3.93-5.22) 10^6/uL Hct 33.2 L (36.0-46.0) % Temp Pulse Resp BP Pulse Ox 98.2 F 83 18 123/68 99 05/02/23 13:48 05/02/23 13:48 05/02/23 13:48 05/02/23 13:48 05/02/23 09:02 Laboratory Results WBC 7.85 10^3/uL (4.4-10.8) 05/02/23 09:07 RBC 3.57 10^6/uL (3.93-5.22) L 05/02/23 09:07 Hgb 11.6 g/dL (11.2-15.7) 05/02/23 09:07 Hct 33.2 % (36.0-46.0) L 05/02/23 09:07 MCV 93 fL (80-95) 05/02/23 09:07 MCH 32.5 pg (27.0-33.0) 05/02/23 09:07 MCHC 34.9 % (32.0-36.0) 05/02/23 09:07 RDW 13.4 % (11.7-14.6) 05/02/23 09:07 Plt Count 147 10^3/uL (130-400) 05/02/23 09:07 MPV 10.1 fL (8.0-11.0) 05/02/23 09:07 Membranes Rupture Positive 05/02/23 08:10 COVID-19 Source Nasal/Nares 05/02/23 12:20 SARS-CoV-2 (PCR) Negative (Negative) 05/02/23 12:20 Patient ABO/Rh O Positive 05/02/23 09:07 Antibody Screen NEGATIVE 05/02/23 09:07 Vital Signs Reviewed: Yes Subjective Interval history since last seen: Reports contractions are regular and getting more uncomfortable. Doing well with them. KH Results Hemoglobin/Hematocrit: Hgb 11.6 g/dL (11.2-15.7) 05/02/23 09:07 Hct 33.2 % (36.0-46.0) L 05/02/23 09:07 Abnormal Lab Findings: Abnormal Labs 05/02/23 09:07 RBC 3.57 L Hct 33.2 L
[2023-05-02] MEDS: Oxytocin/Normal Saline 30 UNIT/500 ML BAG 95 UNITS IV (19:22)
[2023-05-02] MEDS: fentaNYL 100 MCG/2 ML VIAL 25 MCG IJ (20:22)
[2023-05-02] MEDS: AZITHROMYCIN 500 MG in Normal Saline 250 ML 250 MG IVPB (20:40)
--- NOTE | 2023-05-02 20:42 | W.PM.OBPNV1 ---
Date of service: 05/02/23 Time of Service: 20:55 Assessment and Plan Assessment and plan (1) Retained placenta: Status: Acute Assessment and plan: After further discussion with the patient she opted to go to the OR for placenta extraction with anesthesia. The OR team was notified. Subjective Subjective Interval history: Pt underwent an unmedicated NVD at 19:15 and when the placenta had not delivered by 19:45 I was called to come and help with removal. Pt was hemodynamically stable without excessive blood loss at the time. Exam Physical Exam Vital signs: Temp Pulse Resp BP Pulse Ox 97.9 F 90 18 92/58 L 99 05/02/23 19:47 05/02/23 20:35 05/02/23 19:47 05/02/23 20:18 05/02/23 20:35 Vital Signs Reviewed: Yes Exam Comments: After pt consent an attempt was made to manually remove the placenta. The lower edge of the placenta was brought out of the uterus to the introitus. However, there was still a portion stuck to the upper right uterine fundus. She received 25mcg of fentanyl prior to another attempt but the lower uterine segment was contracted too much to allow for manual extraction of the remaining adherent placental tissue. Results Hemoglobin/Hematocrit: Hgb 11.6 g/dL (11.2-15.7) 05/02/23 09:07 Hct 33.2 % (36.0-46.0) L 05/02/23 09:07 Abnormal Lab Findings: Abnormal Labs 05/02/23 09:07 RBC 3.57 L Hct 33.2 L
--- NOTE | 2023-05-02 20:46 | OBVDS_ITS ---
Date of service: 05/02/23 Time of Service: 20:46 OB Labor/ Delivery Information Baby A Delivery Delivery Method: Spontaneaous Presentation: Cephalic Cephalic Position: Vertex Vertex Position: Left Occipital Anterior Cord Description-Baby A: 3 Vessels and Clamped/Cut (after 8 minutes of delayed cord clamping) Delivery Outcome: Liveborn Transferred: Remains with Mother Note: Margarette presented at approximately 0730 today with complaint of small gushes of fluid since 1900 on 05/01/23. She had more fluid at 0630 that soaked her underwear and called at that time. She was not in labor on arrival. NST was reactive and reassuring. ROM + was positive. After consultation with Dr. Nickolas jensen, plan was to offer induction with mispoostol as cervix appeared long thick and closed on SSE. She responded well to that and labor began to progress well. She had increased pain at 1810. At that time VE was 5/100/0 with bulging forewaters that she agreed to have ruptured. Fluid was clear. FHR remained reassuring ranges via doppler. At 1853 she was 9.5cm and had involuntary urge to push. Second stage huddle was held and found she was low risk for shoulder dystocia, pre-eclampsia and PPH. She progressed with her pushing and delivered a live male SARA over intact perineum at 191. Baby was placed skin to skin and positive family bonding was noted. He had of 8/9. Pitocin was running via IV after of baby per protocol. She had a small gush of blood and attempt to guide placenta failed. She was assisted into a squatting position to attempt to push placenta out but that was also unsuccessful and singer songwriter could not feel placental edge by cervix. At 30 minutes of life I asked RN to call Dr. Rao to attend and assess for retained placenta. Second IV was placed. Sediment Remediation Consultant was aware of patient condition. Total blood loss at that time 500cc. Dr. Rao presented and attempted to remove placenta again without success, see MD note. Plan after attempted manual removal of placenta in room without complete removal is to arrange for patient to go to OR for manual removal in OR under anesthesia. After final attempt by Dr. Rao there was another 250cc blood loss and that is total of 750 at this time. VS are stable and patient is sitting up nursing baby at time of this report while preparing to go to OR. See completed delivery record and note by Dr. Rao for placenta delivery. Providers Nurse Environmental Protection Economist: Yolanda Garcia Labor/Delivery Information Number of Babies in Womb: 1 Steroids Given: None Reason Steroids Not Administered: N/A Group Beta Strep: Negative Rubella Status: Immune Blood Type: O+ Varicella Immunity: Immune Stages of Labor Onset of Labor Date: 05/02/23 Onset of Labor Time: 12:00 ROM Baby A: 05/01/23 ROM Baby A: 19:00
--- NOTE | 2023-05-02 20:52 | ANES.PREOP_ITS ---
General Info Date of Service Date Performed: 05/02/23 Height: 5 ft 6 in Weight: 79.379 kg Body Mass Index (BMI): 28.2 Meds Allergies and Home Medications Allergies Allergy/AdvReac Type Severity Reaction Status Date / Time sulfamethoxazole AdvReac Intermediate Nausea Verified 05/02/23 08:59 [From Bactrim] trimethoprim [From Bactrim] AdvReac Intermediate Nausea Verified 05/02/23 08:59 Home Medication Medication Instructions Recorded acetaminophen 325 mg tablet 650 mg (2 x 325 mg) PO Q4H PRN PRN 11/22/15 (Tylenol) albuterol sulfate 90 mcg/actuation 8.5 gm inhalation Q4H PRN ##1 09/11/17 aerosol inhaler (ProAir HFA) L.acid,gasseri,plant,rham-B.animalis-cran 1 cap PO PRN 02/10/22 5 billion cell-250mg capsule (up4 Probiotics Women's) prenat.vits,mickey,irg-vela-wszjy 1 tab PO DAILY 09/23/22 cholecalciferol (vitamin D3) 50 50 mcg PO DAILY 11/29/22 mcg (2,000 unit) capsule ferrous sulfate 325 mg (65 mg 325 mg PO DAILY #90 tabs 01/07/23 iron) tablet meclizine 25 mg tablet (Dramamine 25 mg PO QID #60 tabs 01/28/23 (meclizine)) Current Visit Medications: Current Medications Generic Name Dose Route Start Last Admin Trade Name Freq PRN Reason Stop Dose Admin Ringer's Solution 1,000 mls @ 200 mls/hr 05/02/23 09:00 IV INFUSION [place] IV Miscellaneous Supplies 1 each 05/02/23 08:46 Iv Access IV DIRECTED PRN maternal indication Misoprostol 50 mcg 05/02/23 09:00 05/02/23 09:52 Misoprostol 25 Mcg Tab PO 50 mcg Q4H [place] Administration Sodium Chloride 0 ml 05/02/23 08:46 05/02/23 09:58 Normal Saline Flush 10 Ml Syr IVP 10 ml PRN PRN Administration Terbutaline Sulfate 0.25 mg 05/02/23 08:46 Terbutaline 1 Mg/Ml Vial SC PRN PRN Zolpidem Tartrate 10 mg 05/02/23 21:00 Zolpidem 5 Mg Tab PO 05/03/23 06:00 2100 [place] PFSH Active Problems Active Problems: Problem Status Onset Code Retained placenta O73.0 Premature rupture of membranes O42.90 BPPV (benign paroxysmal positional vertigo) H81.10 uterine contractions O47.00 Marijuana smoker, episodic F12.90 Z34.90 Medical History Medical History History of miscarriage Spontaneous Asthma Surgical History Surgical History No significant past surgical history Tobacco Smoking/Tobacco Use Status: Never Passive smoking exposure: Yes Alcohol Alcohol Intake: former Substance Use Substance use: Daily Substance use type: marijuana Prental History History 2 5 Para 2 Hx # Term Pregnancies 2 Multiple births 0 Hx # Pregnancies 0 Ectopic pregnancies 0 AB induced 1 Hx Number of Living Children 2 AB spontaneous 1 Past Pregnancies Del. Date GA/Weeks # Preg Succ Route Wgt Sex Labor Lgth Anesth esia Location [facility] 06/15/11 40 No vaginal 3827.186 g Male [address] [facility] 11/21/15 40 No vaginal 3798.836 g Female 11 [facility] with CNM Delivery Date: 06/15/11 Last Updated by: Yolanda Olivera CNM epidural ineffective, numb on one side. Delivery Date: 11/21/15 Last Updated by: Yolanda Olivera CNM nitrous oxide used briefly. Vital Signs and Lab Results Vital Signs Most Recent Vital Signs in EMR: Most Recent Vital Signs Temp Pulse Resp BP Pulse Ox 36.8 C 80 18 111/74 99 05/02/23 20:35 05/02/23 20:48 05/02/23 20:48 05/02/23 20:48 05/02/23 20:35 Lab Results 05/02/23 09:07 Blood Type / Crossmatch: 2 Patient ABO/Rh O Positive 05/02/23 Antibody Screen NEGATIVE 05/02/23 Complete Blood Count: 2 White Blood Count 7.85 10^3/uL (4.4-10.8) 05/02/23 09:07 Red Blood Count 3.57 10^6/uL (3.93-5.22) L 05/02/23 09:07 Hemoglobin 11.6 g/dL (11.2-15.7) 05/02/23 09:07 Hematocrit 33.2 % (36.0-46.0) L 05/02/23 09:07 Platelet Count 147 10^3/uL (130-400) 05/02/23 09:07 Complete Metabolic Panel: 2 No Data to Display Liver Function Panel: 2 No Data to Display Coagulation Panel: 2 No Data to Display Cardiac Panel: 2 No Data to Display Arterial Blood Gas: 2 No Data to Display Venous Blood Gas: 2 No Data to Display Pancreas Panel: 2 No Data to Display Thyroid Panel: 2 No Data to Display Infectious Disease: 2 Coronavirus (COVID-19)(PCR) Negative (Negative) 05/02/23 12:20 Coronavirus 2019 Source Nasal/Nares 05/02/23 12:20 Blood Cultures: 2 No Data to Display Toxicology Panel: 2 Urine Amphetamines Screen Negative (Negative) 04/05/23 13:15 Urine Benzodiazepines Screen Negative (Negative) 04/05/23 13:1 5 Urine Barbiturates Screen Negative (Negative) 04/05/23 13:15 Urine Cocaine Screen Negative (Negative) 04/05/23 13:15 Urine Methadone Screen Negative (Negative) 04/05/23 13:15 Urine Opiates Screen Negative (Negative) 04/05/23 13:15 Ur Tricyclic Antidepressants Screen Negative (Negative) 13:15 Ur Tetrahydrocannabinol (THC) Scrn Negative (Negative) 3 13:15 Panel: 2 No Data to Display Anesthesia Assessment and Plan Anesthesia History Personal History: No History of Anesthesia Complications Family History: No Family History of Anesthesia Complications Exercise Tolerance Exercise Tolerance: Metabolic Equivalents>4 Pertinent Negatives Pertinent Negatives: No Major Cardiovascular Symptoms or Complaints and No Major Pulmonary Symptoms or Complaints Cardiac & Pulmonary Exam Cardiac Exam: Normal S1/S2 Heart Sounds Pulmonary Exam: Clear Bilateral Breath Sounds Implantable Cardiac Device Does patient have a Pacemaker or an ICD?: No Airway Exam Known Difficult Airway: No Mallampati Class: 2 Mouth Opening: Normal (> 3cm) Thyromental Distance: Greater than 3 cm Neck Range of Motion: Full ROM Neck Circumference: Normal Teeth Condition: Normal Dentition ASA Classification ASA Score: ASA 2 Emergency Case?: Yes NPO Status NPO Status: Full Stomach Status Status: Not Per Patient Anesthesia Plan Resuscitation Status: Full Code Anesthesia Technique: Spinal Anesthesia Airway Planned: Natural Airway Monitors Used: Standard Monitors
[2023-05-02] MEDS: Lactated Ringers 1,000 ML 200 ML IV (21:26)
--- NOTE | 2023-05-02 21:58 | PLAC_PTH ---
PATIENT: Margarette Miller LOC: OBS U#:[id number] AGE/SX: 32/F ROOM: OBS.304 RE05/02/[address]: Yolanda Garcia CNM : 1990 BED: A DIS: 05/04/2023 SPEC #: [id number] RECD: 05/03/23 11:30 STATUS: SOUSanti REQ #: [id number] ROGELIO: 05/02/23 21:[address]: Yolanda Garcia DEPT: Surgical Specimen RECD BY: Jojo Stover ENTERED: 05/03/23 11:35 SP TYPE: PLAC OTHR DR: LESLEY Ho Tissues: 1 - PLACENTA (3RD TRIMESTER) Procedures: GROSS AND MICRO LEVEL 5 Comments: [id number]
[2023-05-02] MEDS: miSOPROStol 100 MCG TAB (21:59)
--- NOTE | 2023-05-02 22:18 | W.PM.OP ---
Date of service: 05/02/23 Time of Service: 21:30 Operative Note Operative Note DATE OF PROCEDURE: 05/02/23 PRE-OP DIAGNOSIS: retained placenta POST-OP DIAGNOSIS: same PROCEDURE: Manual extraction of placenta SURGEON: Jennifer Rao Refer to Anesthesia Record ESTIMATED BLOOD LOSS: 500 COMPLICATIONS: None Patient was transported to: floor Patient's condition: stable Indications: Retained placenta >1hr s/p NVD with unsuccessful manual removal in the room. Findings: Placenta stuck in the upper right fundus but released pretty easily with manual extraction. Procedure Description: After informed consent was signed the patient was taken to the operating room and given spinal anesthesia. She was prepped and draped in the dorsal lithotomy position in the [facility]. A time out was performed. The hand was inserted into the uterus and the placenta was gentle teased from the surface of the uterus until it released. A second sweep of the cavity revealed a small piece of membrane but nothing else was noted within the cavity. The uters contracted significantly after removal of the placenta. The patient was given 700mcg of misoprostol to prevent significant bleeding. There was minimal bleeding and the uterus was noted to be firm. The patient was placed back into the supine position. She was moved to the stretcher and taken to the recovery room in stable condition.
[2023-05-02] MEDS: Ibuprofen 600 MG TAB PO (23:11)
[2023-05-02] MEDS: Acetaminophen 325 MG TAB 650 MG PO (23:11)
[2023-05-02] MEDS: Docusate Sodium 100 MG CAP PO (23:11)
--- NOTE | 2023-05-02 23:38 | NUR.NOTE ---
Nursing Note: Patient with successful delivery of baby boy at 1916. pitocin IV was started immediately after delivery. was placed skin to skin with mom immediately following delivery while awaiting delivery of the placenta. After 35 minutes, myself and the CNM decided to page the MD. The MD immediately returned the phone call and came in. In the meantime, the CNM and myself attempted position changes and the CNM kept attempting to get the placenta to deliver but was unsuccessful. I inserted a second IV to have just in case of an emergency along with beginning some LR along with the IV pitocin. The MD arrived and attempted to manually extract the placenta before making the decision to go to the OR. During this time, I received a verbal order with readback of 25 mcg of fentanyl to administer to the patient. The MD was unsuccessful at getting the placenta out and the decision was made to go to the OR where the placenta was successfully removed. The patient during this entire time was asymptomatic for infection or signs of severe blood loss. Vitals remained stable throughout the process and after. Continuing to monitor the patient closely throughout the remainder of this shift.
[2023-05-03] VITALS (13 sets, daily range): BP systolic 103–129; BP diastolic 53–67; PULSE 70–92; RESP 16–17; TEMP 35.9–36.8; O2SAT 98–99
[2023-05-03] MEDS: Lactated Ringers 1,000 ML 200 ML IV (00:06)
[2023-05-03] MEDS: Acetaminophen 325 MG TAB 650 MG PO ×4 (03:04→21:31)
[2023-05-03] MEDS: Ibuprofen 600 MG TAB PO ×3 (05:08→17:00)
--- NOTE | 2023-05-03 06:20 | W.ANESPOSTOP ---
Postoperative Evaluation Date, Time and Location Date Performed: 05/02/23 Time Performed: 22:25 Patient Location: Obstetrics Vital Signs Most Recent Imported Vital Signs: Most Recent Vital Signs Temp Pulse Resp BP Pulse Ox 36.4 C L 76 16 103/53 L 98 05/03/23 05:00 05/03/23 05:00 05/03/23 05:00 05/03/23 05:00 05/03/23 05:00 Pain Score Most Recent Pain Score: Most Recent Pain Score Pain Level [Abdomen] 7 05/03/23 05:00 Pain Level 7 05/03/23 05:08 Assessment Mental Status: Awake (Alert & Oriented to Patient Baseline) Airway and Respiratory Function: Patent airway with normal (patient baseline) respiratory exam Cardiovascular Function: Hemodynamically Stable Hydration Status: Volume Depleted (See Note) (Receiving fluid per OBGYN) Nausea & Vomiting: No Nausea or Vomiting Pain: Pt. Denies Any Pain Peripheral Nerve Block: Patient did not receive a nerve block Postoperative Comments:: SAB has not resolved, patient stable, returned to birthing suite.
[2023-05-03 07:33] LABS: HCT 26.5 % (36.0-46.0); HGB 9.3 g/dL (11.2-15.7); MCH 32.6 pg (27.0-33.0); MCHC 35.1 % (32.0-36.0); MCV 93 fL (80-95); MPV 10.8 fL (8.0-11.0); Platelet Count 149 10^3/uL (130-400); RBC 2.85 10^6/uL (3.93-5.22); RDW 13.3 % (11.7-14.6); RDW-SD 45.1 fL; WBC 16.86 10^3/uL (4.4-10.8)
[2023-05-03] MEDS: Hamamelis Leaf/Glycerin 100 EACH BOX (11:02)
--- NOTE | 2023-05-03 17:07 | W.PM.OBPNV1 ---
Date of service: 05/03/23 Time of Service: 17:07 Assessment and Plan Assessment and plan (1) Retained placenta: Status: Acute Assessment and plan: Caring for baby independently. Pain is managed well with oral analgesics. Voiding without difficulty. well. A - stable mother and baby , Post day 1 P - Discharge to home tomorrow. Routine post instructions. [facility] Subjective Subjective Interval history: Margarette had retained placenta and manual removal under anesthetic. Treated with misoprostol PV. Hgb 9.3 and HCT 26.5 this morning. Margarette is ambulating without difficulty and caing for her baby and nursing with her partner's help. Patient's Mood: good baby status: Doing well and Nursing well feeding status: Exclusively breast feeding Exam Physical Exam Vital signs: Temp Pulse Resp BP Pulse Ox 97.9 F 81 17 104/66 99 05/03/23 15:03 05/03/23 15:03 05/03/23 15:03 05/03/23 15:03 05/03/23 15:03 Respiratory Exam Respiratory Exam: Normal Cardiovascular Exam Cardiovascular Exam: Normal Fundal Exam Fundus: Below Umbilicus and Firm Rectal Exam Rectal Exam: Normal Extremities Exam Extremity Exam: Normal Skin Exam Skin Exam: Normal Psychiatric Exam Psychiatric Exam: Normal Results Hemoglobin/Hematocrit: Hgb 9.3 g/dL (11.2-15.7) L D 05/03/23 05:45 Hct 26.5 % (36.0-46.0) L 05/03/23 05:45 Abnormal Lab Findings: Abnormal Labs 05/02/23 05/03/23 09:07 05:45 WBC 16.86 H RBC 3.57 L 2.85 L Hgb 9.3 L D Hct 33.2 L 26.5 L
[2023-05-03] MEDS: Docusate Sodium 100 MG CAP PO (20:23)
[2023-05-04] MEDS: Acetaminophen 325 MG TAB 650 MG PO ×2 (02:25→08:06)
[2023-05-04] MEDS: Ibuprofen 600 MG TAB PO ×2 (02:26→08:06)
[2023-05-04 08:00] VITALS: BP 102/62; PULSE 85; RESP 12; TEMP 36.8; O2SAT 99
[2023-05-04] MEDS: Docusate Sodium 100 MG CAP PO (08:05)
--- NOTE | 2023-05-04 09:06 | DSE_ITS ---
Date of service: 05/04/23 Time of Service: 09:07 DS: Diagnosis Discharge Diagnosis (1) Term of male : Status: Acute Asessment and Plan: Caring for baby independently. Pain is managed well with oral analgesics. Voiding without difficulty. Margarette reports difficulty with latch in the past and has used a nipple shield in the past. well with nipple shield. A - stable mother and baby , Post day 2 P - Discharge to home today. Routine post instructions. [facility] Discharge Plan Disposition Patient Disposition: Home Condition: Good Discharge Details Reason For Visit: PROM at Term Admit Date/Time: 05/02/23 08:46 Admit Provider: Yolanda Garcia Attending Provider: Yolanda Garcia Primary Care Provider: Swapna Manuel Home Meds and New Rx's Prescriptions: No Action up4 Probiotics Women's 5 billion cell- 250 mg capsule 1 cap PO PRN prenat.vits,mickey,vwo-jrox-szdce Tablet 1 tab PO DAILY cholecalciferol (vitamin D3) 50 mcg (2,000 unit) capsule 50 mcg PO DAILY ferrous sulfate 325 mg (65 mg iron) tablet 325 mg PO DAILY Qty: 90 1RF meclizine [Dramamine (meclizine)] 25 mg tablet 25 mg PO QID Qty: 60 2RF Rx Instructions: take one or two tabs every 6 hours for vertigo acetaminophen [Tylenol] 325 MG tablet 650 mg PO Q4H PRN PRN0RF albuterol sulfate [ProAir HFA] 8.5 GM HFA aerosol inhaler 8.5 gm Inhalation Q4H PRNQty: 1 0RF Rx Instructions: 2 puffs up to every 4 hrs prn wheeze Discharge Instructions Stand Alone Forms: BC Instructions, BC Post Vaginal Deliver Activity:: Activity as Tolerated Equipment/Supplies:: No Equipment Needed Diet:: As Tolerated Discharge Orders Discharge Orders: Discharge Order (Routine); Ordered 05/04/23 Ordered By: Yolanda Olivera OB:DS Summary Summary Vaginal Delivery Method: Spontaneaous Episiotomy Description: None Laceration Description: None Laceration Extension: N/A Contraception Discussed Contraception Discussed: Yes Contraceptive Plan: Foam/Condoms, Infant Gender-Baby A: Male weight: 7 lb 5.11 oz Status at Discharge Functional status at discharge: independent ambulation Overall status at discharge: patient is back to baseline Mental Status: mental status grossly normal Speech and Movement: speech and movement normal Mood: congruent mood Affect: normal affect Exam Physical Exam Vital signs: Temp Pulse Resp BP Pulse Ox 97.9 F 81 17 104/66 99 05/03/23 15:03 05/03/23 15:03 05/03/23 17:00 05/03/23 15:03 05/03/23 15:03 Neck Exam Neck Exam: Normal Respiratory Exam Respiratory Exam: Normal Cardiovascular Exam Cardiovascular Exam: Normal Fundal Exam Fundus: Below Umbilicus and Firm Extremities Exam Extremity Exam: Normal Skin Exam Skin Exam: Normal Psychiatric Exam Psychiatric Exam: Normal PFSH All Active Problems (Updated 05/04/23 @ 09:09 by Yolanda Olivera CNM) Term of male (Acute) Retained placenta (Acute) BPPV (benign paroxysmal positional vertigo) (Acute) symptoms had resolved, but recurring at 26 wks Marijuana smoker, episodic (Acute) Medical History (Updated 05/04/23 @ 09:09 by Yolanda Olivera CNM) History of miscarriage Asthma Surgical History No significant past surgical history Family History Mother Epilepsy Father Substance use disorder COPD (chronic obstructive pulmonary disease) Brother Bipolar disorder Brother No problems noted. Son Asthma Daughter No problems noted. Maternal Grandfather No problems noted. Maternal Grandmother Hypertension Paternal Grandfather No problems noted. Paternal Grandmother Kidney disease Aunt Asthma Uncle Asthma Social History Smoking/Tobacco Use Status: Never Smoking risk assessment performed?: Yes Alcohol Intake: former Drug use: Daily Substance use type: marijuana Household members: children Housing: house Do you feel safe at home: Yes Do you feel safe in your relationship?: Yes Female Reproductive History Menstrual Age of Menarche: 13 History History 5 Para 3 Hx # Term Pregnancies 3 Multiple births 0 Hx # Pregnancies 0 Ectopic pregnancies 0 AB induced 1 Hx Number of Living Children 3 AB spontaneous 1 Past Pregnancies Del. Date GA/Weeks # Preg Succ Route Wgt Sex Labor Lgth Anesth esia Location Prov [facility] 06/15/11 40 No vaginal 8 lb 7 oz Male [facility] 11/21/15 40 No vaginal 8 lb 6 oz Female 11 [facility] - with CNM 05/02/23 39 No Yes vaginal 7 lb 5.11 oz Male Taya Rao MD/[facility] Delivery Date: 06/15/11 Last Updated by: Yolanda Olivera CNM epidural ineffective, numb on one side. Delivery Date: 11/21/15 Last Updated by: Yolanda Olivera CNM nitrous oxide used briefly. Delivery Date: 05/02/23 Last Updated by: Carmen Fonseca LPN EBL post delivery ~750cc; retained placenta, to OR/spinal administered, able to do manual extraction; DS: Data Vitals/I&O Vitals and I&O: Vital Signs Temperature 97.9 F 05/03/23 15:03 Temperature 98.1 F 05/02/23 09:14 Temperature Source Oral 05/03/23 15:03 Pulse 81 05/03/23 15:03 Pulse 73 05/02/23 09:14 Pulse Rhythm Regular 05/03/23 21:32 Respiratory Rate 17 05/03/23 17:00 Respiratory Depth Normal 05/03/23 10:34 Blood Pressure 104/66 05/03/23 15:03 Blood Pressure 106/50 05/02/23 09:14 Blood Pressure Mean 78 05/03/23 15:03 Pulse Oximetry 99 05/03/23 15:03 Oxygen Delivery Method Room Air 05/02/23 09:02 Oxygen Flow Rate 0 05/02/23 09:02 Pain Level 6 05/04/23 08:06 Comment Return from OR 05/02/23 22:15 Intake & Output 05/03/23 05/03/23 05/04/23 11:59 23:59 11:59 Intake Total 2450 / 2450 Output Total 1420 / 1420 Balance 1030 / 1030 Intake: IV 2450 / 2450 Output: Urine 1420 / 1420 Other: Urine Color Yellow Yellow
== END 2023-05-04 13:45 | disposition home or self-care (01) | DRG 806 ==
LOC: OBS 09:14
PROVIDERS: Obstetrics & Gynecology; Admitting Provider Advanced Practice Midwife; PCP Nurse Practitioner Family; Visit Provider Advanced Practice Midwife
PROC: 10D17Z9 Manual Extraction of Products of Conception, Retained, Via Natural or Artificial Opening (ICD-10-PCS; CPT 59414; principal; 2023-05-02 21:10)
DX: O42.02 Full-term premature rupture of membranes, onset of labor within 24 hours of rupture (principal); O99.324 Drug use complicating childbirth; Z37.0 Single live birth; O73.0 Retained placenta without hemorrhage; Z3A.39 39 weeks gestation of pregnancy; F12.90 Cannabis use, unspecified, uncomplicated; O75.89 Other specified complications of labor and delivery
CPT/HCPCS: 59414; 36415; 84112; 85027; 86850; 86900; 86901; 87635; 59025; 88307; J0456; J2405; J3010; J3490

== ENCOUNTER 2024-01-28 14:41 | Emergency (ER) | payer MEDICAID, SELFPAY ==
[2024-01-28 14:44] VITALS: BP 125/60; PULSE 84; RESP 15; TEMP 36.6; O2SAT 99
[2024-01-28 14:47] VITALS: BP 125/60; PULSE 84; RESP 15; TEMP 36.6; O2SAT 99
--- NOTE | 2024-01-28 15:45 | ED.GENADUL_ITS ---
Discharge Plan Disposition Patient Disposition: Home Condition: Stable Discharge Details Clinical Impression: Sore throat Primary Care Provider: Swapna Manuel ED Provider: Joel Mcqueen Home Meds and New Rx's Prescriptions: Continued up4 Probiotics Women's 5 billion cell- 250 mg capsule 1 cap PO PRN ferrous sulfate 325 mg (65 mg iron) tablet 325 mg PO DAILY PRN meclizine [Dramamine (meclizine)] 25 mg tablet 25 mg PO QID PRN Rx Instructions: take one or two tabs every 6 hours for vertigo prenat.vits,mickey,baw-heqy-cjybm Tablet 1 tab PO DAILY acetaminophen [Tylenol] 325 MG tablet 650 mg PO Q4H PRN PRN0RF albuterol sulfate [ProAir HFA] 8.5 GM HFA aerosol inhaler 8.5 gm Inhalation Q4H PRNQty: 1 0RF Rx Instructions: 2 puffs up to every 4 hrs prn wheeze Discharge Instructions Additional Instructions: Your strep test was negative You can take 1000 mg of Tylenol and 600 mg of ibuprofen every 6 hours as needed If not better within a week follow-up with your primary care provider If you feel more ill, or have new symptoms such as inability to swallow liquids return to the emergency department for reevaluation. HPI General Mode of arrival: ambulatory . Date/Time Provider Initiated Documentation: 01/28/24 14:43 . Limitations to Documentation: no limitations . Information obtained by: patient . History of Present Illness 33 year old F presents to the emergency department with the chief complaint of sore throat, described as moderate, Quality is described as aching, and it has been constant. No relieving factors improve symptom(s), No exacerbating factors reported . Patient notes no other symptoms.; denies fever/chills. Patient did receive the following treatments prior to arrival, none Related Data Home Medications ?Medication ?Instructions ?Recorded ?Confirmed acetaminophen 325 mg tablet 650 mg (2 x 325 mg) PO Q4H PRN PRN 11/22/15 06/17/23 (Tylenol) albuterol sulfate 90 mcg/actuation 8.5 gm inhalation Q4H PRN ##1 09/11/17 06/17/23 aerosol inhaler (ProAir HFA) L.acidmya,nicho,rham-B.animalis-cran 1 cap PO PRN 02/10/22 06/17/23 5 billion cell-250mg capsule (up4 Probiotics Women's) prenat.vits,mickey,mjm-actf-xdilm 1 tab PO DAILY 09/23/22 06/17/23 ferrous sulfate 325 mg (65 mg 325 mg PO DAILY PRN 06/17/23 06/17/23 iron) tablet meclizine 25 mg tablet (Dramamine 25 mg PO QID PRN 06/17/23 06/17/23 (meclizine)) Previous Rx's ?Medication ?Instructions ?Recorded acetaminophen 325 mg tablet 650 mg (2 x 325 mg) PO Q4H PRN PRN 11/22/15 (Tylenol) albuterol sulfate 90 mcg/actuation 8.5 gm inhalation Q4H PRN ##1 09/11/17 aerosol inhaler (ProAir HFA) Allergies Allergy/AdvReac Type Severity Reaction Status Date / Time sulfamethoxazole (From AdvReac Intermediate Nausea Verified 06/17/23 13:00 Bactrim) trimethoprim (From Bactrim) AdvReac Intermediate Nausea Verified 06/17/23 13:00 General Stated Complaint: Sorethroat JANIS: 4 Review of Systems All systems reviewed & are unremarkable except as noted in HPI and below Constitutional Constitutional: Denies chills, Denies fever(s) and Denies weakness ENT Ears, Nose, Mouth, and Throat: Reports other (sore throat) Cardiovascular Cardiovascular: Denies dyspnea Respiratory Respiratory: Denies cough and Denies dyspnea Gastrointestinal Gastrointestinal: Denies abdominal pain, Denies nausea and Denies vomiting Musculoskeletal Musculoskeletal: Denies joint swelling Neurologic Neurologic: Denies weakness Exam Const General: no acute distress Orientation: alert [facility] Head: normal to inspection and normocephalic Ears: external ears normal and TM's normal bilaterally General nose exam: external nose normal Mouth: moist mucous membranes Eyes General: appearance normal, both eyes and all related structures Neck Neck: normal visual inspection Resp Effort & Inspection: normal respiratory effort and able to speak in complete sentences Cardio Rate: regular rate Skin General skin exam: no rashes or lesions noted Neuro General: patient alert and patient oriented x3 Extrem General: normal to inspection Psych Mental Status: mental status grossly normal Course Vital Signs Vital signs: Vital Signs Temperature 36.6 C 01/28/24 14:44 Pulse 84 01/28/24 14:44 Respiratory Rate 15 01/28/24 14:44 Blood Pressure 125/60 01/28/24 14:44 Pulse Oximetry 99 01/28/24 14:44 Temperature 36.6 C 01/28/24 14:47 Temperature Source Tympanic 01/28/24 14:47 Pulse 84 01/28/24 14:47 Respiratory Rate 15 01/28/24 14:47 Respiratory Effort Normal 01/28/24 14:47 Blood Pressure 125/60 01/28/24 14:47 Blood Pressure Position Sitting 01/28/24 14:47 Pulse Oximetry 99 01/28/24 14:47 Oxygen Delivery Method Room Air 01/28/24 14:47 Oxygen Flow Rate 0 01/28/24 14:44 Pain Level 8 01/28/24 14:44 Lab/Test Results Lab/Test Results: 01/28/24 14:50 Tonsil - Not Specified Group A Streptococcus Culture - Pending POC Strep Test-TAMICA(Rapid) Start: 01/28/24 14:50 Freq: .Rapid Strep Test Status: Active Protocol: Document 01/28/24 15:10 TB (Rec: 01/28/24 15:10 TB [id number]) Strep test-TAMICA(Rapid)-POC POC-Strep test-TAMICA (Rapid) Negative POC-Strep test-TAMICA (Rapid) Negative Medical Decision Making 33-year-old female comes in with 4 days of a sore throat and pain with swallowing. She denies any fevers, inability to swallow liquids, change in voice. She is alert and oriented on arrival speaking clearly, has no stridor and is swallowing normally and breathing normally on exam. Her posterior pharynx is mildly erythematous with a midline uvula, no submandibular swelling no pain over the hyoid and no restricted neck movements. Strep and eyymu-ut-trei COVID and flu testing were negative. I suspect viral pharyngitis, findings on exam or history to suggest epiglottitis, retropharyngeal abscess or peritonsillar abscess. I will give her a one-time dose of dexamethasone and advised to follow-up with her PCP if not improving and return precautions given Differential Diagnosis Differential Diagnosis: Strep throat, COVID, pharyngitis Quality:SDOH Health Related Social Needs: No Data to Display PFSH All Active Problems (Updated 01/28/24 @ 15:48 by Joel Mcqueen MD) Sore throat (Acute) Encounter for care and examination of lactating mother (Acute) Anemia during puerperium (Acute) care and examination (Acute) BPPV (benign paroxysmal positional vertigo) (Acute) symptoms had resolved, but recurring at 26 wks Marijuana smoker, episodic (Acute) Medical History Retained placenta with hemorrhage Term of male History of miscarriage Asthma Surgical History No significant past surgical history Family History Mother Epilepsy Father Substance use disorder COPD (chronic obstructive pulmonary disease) Brother Bipolar disorder Brother No problems noted. Son Asthma Daughter No problems noted. Maternal Grandfather No problems noted. Maternal Grandmother Hypertension Paternal Grandfather No problems noted. Paternal Grandmother Kidney disease Aunt Asthma Uncle Asthma Social History Smoking/Tobacco Use Status: Never Smoking risk assessment performed?: Yes Alcohol Intake: former Drug use: Daily Substance use type: marijuana Household members: children Housing: house Do you feel safe at home: Yes Do you feel safe in your relationship?: Yes Female Reproductive History Menstrual Age of Menarche: 13 History History 5 Para 3 Hx # Term Pregnancies 3 Multiple births 0 Hx # Pregnancies 0 Ectopic pregnancies 0 AB induced 1 Hx Number of Living Children 3 AB spontaneous 1 Past Pregnancies Del. Date GA/Weeks # Preg Succ Route Wgt Sex Labor Lgth Anesth esia Location Prov [facility] 06/15/11 40 No vaginal 3827[facility] No vaginal 3798.836 g Female 11 [facility] 05/02/23 39 No Yes vaginal 3320.013 g Male Hodan jensen MD/[facility] Delivery Date: 06/15/11 Last Updated by: Yolanda Olivera CNM epidural ineffective, numb on one side. Delivery Date: 11/21/15 Last Updated by: Yolanda Olivera CNM nitrous oxide used briefly. Delivery Date: 05/02/23 Last Updated by: Carmen Fonseca LPN EBL post delivery ~750cc; retained placenta, to OR/spinal administered, able to do manual extraction; PAWSS Have you Been Recently Intoxicated or Drunk Within the Last 30 days?: No Have you Ever Experienced Previous Episodes of Alcohol Withdrawal?: No Have you ever Experienced Withdrawal Seizures?: No Have you ever Experienced Delirium Tremens(DT)s?: No Have you ever undergone Alcohol Rehabilitation Treatment (i.e, inpt ot outpatient treatment programs)?: No Have you ever Experienced Blackouts?: No Have you ever Combined Alcohol with other Downers within the last 90 days?: No Have you ever Combined Alcohol with any other Substance of Abuse during the last 90 days?: No Positive Blood Alcohol level on Presentation? [PCS.BAL]: No Evidence of Increased Autonomic Activity (i.e. HR>120, tremor, sweating, agitation, nausea)?: No Result: 0
[2024-01-28] MEDS: Dexamethasone 4 MG TAB 10 MG PO (16:00)
== END 2024-01-28 16:05 | disposition home or self-care (01) ==
PROVIDERS: Emergency Provider Emergency Medicine; PCP Nurse Practitioner Family
DX: J02.9 Acute pharyngitis, unspecified (principal)
CPT/HCPCS: 87426; 87880; 99283; 87081; J8540

== ENCOUNTER 2024-06-25 02:04 | Outpatient (CLI) | payer MEDICAID, SELFPAY ==
--- NOTE | 2024-06-25 06:45 | DI.US_ITS ---
Exam(s) US ABDOMEN EXAM: US ABDOMEN CLINICAL HISTORY: chronic nausea,r11.0 TECHNIQUE: Ultrasound abdomen performed using standard protocol. COMPARISON: No exams were available for comparison FINDINGS: LIVER: Normal size and echogenicity. No focal liver lesions are seen. GALLBLADDER: No evidence of cholelithiasis. No evidence of wall thickening. No pericholecystic fluid identified. MOROCHO'S SIGN: Negative. BILIARY SYSTEM: No intrahepatic or extrahepatic biliary ductal dilation. KIDNEYS: Kidneys are symmetric in size. No evidence of renal calculi. No evidence of hydronephrosis. No renal mass or cyst identified. PANCREAS: Normal where visualized. SPLEEN: Not enlarged. ABDOMINAL AORTA AND IVC: Visualized portions normal caliber. ASCITES: None seen. IMPRESSION: Normal sonographic appearance of the upper abdomen. DATA REPOSITORY:
== END 2024-06-25 02:24 ==
LOC: DI 02:04
PROVIDERS: PCP Nurse Practitioner Family; Visit Provider Nurse Practitioner Family
DX: R11.0 Nausea (principal)
CPT/HCPCS: 76700

== ENCOUNTER 2024-06-25 11:53 | Outpatient (CLI) | payer MEDICAID, SELFPAY ==
[2024-06-25 09:00] LABS: Abs Immature Grans 0.01 10^3/uL (0.0-0.06); Absolute Basophil Count 0.05 10^3/uL (0.0-0.2); Absolute Eosinophil Count 0.15 10^3/uL (0.0-0.7); Absolute Lymphocyte Count 1.81 10^3/uL (1.2-3.4); Absolute Monocyte Count 0.31 10^3/uL (0.1-0.8); Absolute Neutrophil Count 3.64 10^3/uL (1.2-6.7); Basophils % 0.8 %; Eosinophils % 2.5 %; HCT 35.8 % (36.0-46.0); HGB 12.3 g/dL (11.2-15.7); Immature Grans % 0.2 %; Lymphocytes % 30.3 %; MCH 31.5 pg (27.0-33.0); MCHC 34.4 % (32.0-36.0); MCV 92 fL (80-95); MPV 9.7 fL (8.0-11.0); Monocytes % 5.2 %; Platelet Count 177 10^3/uL (130-400); RBC 3.91 10^6/uL (3.93-5.22); RDW 12.3 % (11.7-14.6); RDW-SD 41.3 fL; WBC 5.97 10^3/uL (4.4-10.8)
[2024-06-25 09:24] LABS: ALT 18 U/L (14-59); AST 15 U/L (15-37); Albumin 3.9 g/dL (3.4-5.0); Alkaline Phosphatase 43 U/L (46-116); Anion Gap 9.8 mmol/L (3-11); BUN 14 mg/dL (7-18); Bilirubin, Total 0.61 mg/dL (0.2-1.0); CO2 26.2 mmol/L (21.0-32.0); CREATININE 0.8 mg/dL (0.55-1.02); Calcium 8.9 mg/dL (8.5-10.1); Calculated LDL 100 mg/dL (<100); Chloride 104 mmol/L (98-107); Cholesterol 188 mg/dL (<200); Estimated GFR 100.96 (mL/min/1.73m2); Glucose 88 mg/dL (74-106); HDL Cholesterol 74 mg/dL (40-60); Hemoglobin A1C 4.9 % (<5.7); Potassium 4.4 mmol/L (3.5-5.1); Sodium 140 mmol/L (136-145); TSH (W/Ref FT4) 1.28 uIU/mL (0.36-3.74); Total Protein 7.3 g/dL (6.4-8.2); Triglyceride 71 mg/dL (<150)
[2024-06-25 09:44] LABS: Lipase 32 U/L (<78)
[2024-06-26 18:44] LABS: Lab Add On Test DONE
[2024-06-28 10:49] LABS: IgA 182 mg/dL (85-499); Interpretation (See Note); Tissue Transglutaminase IgA <4.0 CU (<20.0)
== END 2024-06-25 11:54 | disposition home or self-care (01) ==
LOC: LBO 11:53
PROVIDERS: PCP Nurse Practitioner Family; Visit Provider Nurse Practitioner Family
DX: R11.0 Nausea (principal)
CPT/HCPCS: 36415; 80053; 80061; 82784; 83516; 83690; 83036; 84443; 85025

== ENCOUNTER 2024-08-02 11:05 | Outpatient (REF) | payer MEDICAID, SELFPAY | END 2024-08-02 11:06 | disposition home or self-care (01) | LOC: LBN 11:05 | PROVIDERS: PCP Nurse Practitioner Family; Visit Provider Obstetrics & Gynecology Gynecology | DX: N89.8 Other specified noninflammatory disorders of vagina (principal) | CPT/HCPCS: 87480; 87510; 87660 ==

== ENCOUNTER 2025-04-18 09:02 | Emergency (ER) | payer MEDICAID, SELFPAY ==
[2025-04-18 09:03] VITALS: BP 115/67; PULSE 80; RESP 14; TEMP 36.7; O2SAT 100
[2025-04-18 09:11] VITALS: BP 115/67; PULSE 80; RESP 14; TEMP 36.7; O2SAT 100
[2025-04-18] MEDS: Albuterol/Ipratropium 3 ML UPD VIAL UPD (09:22)
--- NOTE | 2025-04-18 12:34 | ED.GENADUL_ITS ---
Discharge Plan Disposition Patient Disposition: Home Condition: Stable Discharge Details Clinical Impression: Acute dyspnea, Insomnia Primary Care Provider: Swapna Manuel ED Provider: Jojo Ibrahim Home Meds and New Rx's Prescriptions: New (DME) BreatheRite Valved MDI Chamber Spacer See Rx Instructions .ROUTE .MEDSUPPLY Qty: 1 0RF Rx Instructions: As directed albuterol sulfate [Ventolin HFA] 90 mcg/actuation HFA aerosol inhaler 2 puff inhalation Q6H PRNQty: 6.7 0RF hydroxyzine HCl 25 mg tablet 25 mg PO QHS Qty: 14 0RF Rx Instructions: as needed for sleep/anxiety prednisone 20 mg tablet 40 mg PO ONCE Qty: 10 0RF Continued albuterol sulfate [Ventolin HFA] 90 mcg/actuation HFA aerosol inhaler 2 inh inhalation Q6H PRN Discharge Instructions Instructions: Shortness of Breath, Adult ED Additional Instructions: Use your inhaler 2 puffs every 4-6 hours as needed for cough, wheeze, shortness of breath, take the steroid as prescribed daily You may take the hydroxyzine at night to help you sleep and with any anxiety may have, this will make you quite tired Should you develop persistent symptoms lasting longer than 2 to 3 days please present for reassessment or see your doctor in the outpatient setting Should he develop chest pain worsening shortness of breath, or should any new concerns arise please return to emergency department Stand Alone Forms: Portal Information, Work Release Referrals: Swapna Manuel NP [Primary Care Provider, Medicine] [facility] General Date/Time Provider Initiated Documentation: 04/18/25 09:11 . HPI Narrative: This 34-year-old female presents with shortness of breath for the past several days. She states she has been coughing and had some nasal discharge. Denies any chance of . History of asthma. Smokes marijuana occasionally denies tobacco use. Denies any calf pain or swelling. Denies any recent flights, surgeries, long drives. Under a great deal of stress as they just moved with 5 children. States that symptoms are much worse at night. Feels as though she cannot inhale completely denies any hemoptysis or family history of coagulopathy. Denies any associated chest discomfort. Has been using an inhaler at home with some mild improvement of symptoms per patient. Last used her inhaler in the evening. Denies chance of . Related Data Home Medications Medication Instructions Recorded Confirmed albuterol sulfate 90 mcg/actuation 2 inh inhalation Q6 H PRN 04/18/25 04/18/25 aerosol inhaler (Ventolin HFA) albuterol sulfate 90 mcg/actuation 2 puff inhalation Q 6H PRN #6.7 04/18/25 aerosol inhaler (Ventolin HFA) grams hydroxyzine HCl 25 mg tablet 25 mg PO QHS #14 tabs 12/05 inhalational spacing device #1 ea 04/18/25 (BreatheRite Valved MDI Chamber spacer) prednisone 20 mg tablet 40 mg (2 x 20 mg) PO ONCE #1 0 tabs 04/18/25 Previous Rx's Medication Instructions Recorded albuterol sulfate 90 mcg/actuation 2 puff inhalation Q 6H PRN #6.7 04/18/25 aerosol inhaler (Ventolin HFA) grams hydroxyzine HCl 25 mg tablet 25 mg PO QHS #14 tabs 12/05 inhalational spacing device #1 ea 04/18/25 (BreatheRite Valved MDI Chamber spacer) prednisone 20 mg tablet 40 mg (2 x 20 mg) PO ONCE #1 0 tabs 04/18/25 Allergies Allergy/AdvReac Type Severity Reaction Status Date / Time sulfamethoxazole (From AdvReac Intermediate Nausea Verified 04/18/25 09:10 Bactrim) trimethoprim (From Bactrim) AdvReac Intermediate Nausea Verified 04/18/25 09:10 General Stated Complaint: RespSymp JANIS: 3 Exam Narrative Exam Narrative: Tachypnea alert and oriented speaking in complete sentences mildly diminished lung sounds without wheezes, alert and oriented no peripheral edema or calf swelling or tenderness Course Vital Signs Vital signs: Vital Signs Temperature 36.7 C 04/18/25 09:03 Pulse 80 04/18/25 09:03 Respiratory Rate 14 04/18/25 09:03 Blood Pressure 115/67 04/18/25 09:03 Pulse Oximetry 100 04/18/25 09:03 Temperature 36.7 C 04/18/25 09:11 Temperature Source Temporal Artery Scan 04/18/25 09:11 Pulse 80 04/18/25 09:11 Respiratory Rate 14 04/18/25 09:11 Respiratory Effort Non-Labored, Short of Breath 04/18/25 09:18 Respiratory Depth Normal 04/18/25 09:18 Blood Pressure 115/67 04/18/25 09:11 Blood Pressure Position Sitting 04/18/25 09:11 Pulse Oximetry 100 04/18/25 09:11 Pain Level 5 04/18/25 09:11 Medical Decision Making Patient has symptomatic improvement of her dyspnea with DuoNeb administration she declines any additional meds at this time. I will give patient hydroxyzine to help her sleep at night and possibly help with some anxiety, I will also give her prednisone and an albuterol inhaler with spacer she is not been using a spacer. If her symptoms persist despite these interventions she is encouraged to return for reassessment. I did consider pulmonary embolism and pneumonia however given her stable vitals and pulmonary embolism rule out criteria negative my suspicion is quite low that this is a PE. I also have low suspicion for pneumonia as patient is afebrile and is only been sick for 4 days and does not have crackles or wheezes on assessment. Discharged home in stable condition with stable vitals return precautions reviewed and work note supplied. Recheck early next week recommended with PCP PFSH All Active Problems (Updated 04/18/25 @ 09:46 by ARACELI Murray) Insomnia (Acute) Acute dyspnea (Acute) Vaginal discharge (Acute) Chronic nausea (Acute) BPPV (benign paroxysmal positional vertigo) (Chronic) Medical History Asthma Surgical History No pertinent past surgical history Family History Mother Epilepsy Father Substance use disorder COPD (chronic obstructive pulmonary disease) Brother Bipolar disorder Brother No problems noted. Maternal Grandfather No problems noted. Maternal Grandmother Hypertension Paternal Grandfather No problems noted. Paternal Grandmother Kidney disease Son Asthma Son No problems noted. Daughter No problems noted. Social History (Updated 02/16/24 @ 17:34 by Janice Cole) Smoking/Tobacco Use Status: Never Smoking risk assessment performed?: Yes Alcohol Intake: current Alcohol Intake frequency: holidays/special occasions only Alcohol type: beer and wine Drug use: Daily Substance use type: marijuana Household members: children Housing: house Do you feel safe at home: Yes Do you feel safe in your relationship?: Yes Female Reproductive History Menstrual Age of Menarche: 13 control method: other (Vasectomy) History History 5 Para 3 Hx # Term Pregnancies 3 Multiple births 0 Hx # Pregnancies 0 Ectopic pregnancies 0 AB induced 1 Hx Number of Living Children 3 AB spontaneous 1 Past Pregnancies Del. Date GA/Weeks # Preg Succ Route Wgt Sex Labor Lgth Anesth esia Location [facility] 06/15/11 40 No vaginal 3827.186 g Male [facility] 11/21/15 40 No vaginal 3798.836 g Female 11 [facility] H- with CNM 05/02/23 39 No Yes vaginal 3320.013 g Male LCorinne jensen MD/[facility]. [facility] Delivery Date: 06/15/11 Last Updated by: Yolanda Olivera CNM epidural ineffective, numb on one side. Delivery Date: 11/21/15 Last Updated by: Yolanda Olivera CNM nitrous oxide used briefly. Delivery Date: 05/02/23 Last Updated by: Tammie Arango MD EBL post delivery ~750cc; retained placenta, to OR/spinal administered, able to do manual extraction;
== END 2025-04-18 09:57 | disposition home or self-care (01) ==
LOC: ER 10:01
PROVIDERS: Emergency Provider Physician Assistant; PCP Nurse Practitioner Family
DX: R06.00 Dyspnea, unspecified (principal); G47.00 Insomnia, unspecified
CPT/HCPCS: 99283 ×2; 94640; J7620